=== PATIENT | female | born 1945 | race Caucasian/White ===

== ENCOUNTER → 2016-06-25 | Outpatient (CLI) | payer OTHER, BC ==
[~2016-06-25] MED LIST: ASPI325T39 PO; CYAN10005 PO; DONE10TA12 PO; FOLI1TAB7 PO; FURO-85 PO; LISI-729 PO; MAGN400T6 PO; PRLSR20 PO; PRVHFAIN INH; SERT50TA PO; SIMV40TA2 PO; TPRSR/100 PO; TRAM-10 PO
[2016-06-25 16:44] LABS: BLOOD UREA NITROGEN 9 mg/dl (7-18); BUN/CREATININE RATIO 10.2 (10-20); CALCIUM 8.7 mg/dl (8.5-10.1); CARBON DIOXIDE 31 mmol/L (21-32); CHLORIDE 101 mmol/L (98-107); CREATININE 0.87 mg/dl (0.60-1.20); GLUCOSE 85 mg/dl (70-99); POTASSIUM 3.9 mmol/L (3.5-5.1); SODIUM 140 mmol/L (136-145)
== END | disposition home or self-care (01) ==
LOC: C.LAB1850 15:12
PROVIDERS: ATTEND Internal Medicine Interventional Cardiology
DX: I42.9 Cardiomyopathy, unspecified (principal)

== ENCOUNTER → 2016-07-09 | Outpatient (CLI) | payer OTHER ==
--- NOTE | 2016-07-09 12:12 | DIAGNOSTIC IMAGING REPORT ---
CHEST 2 VIEWS ROUTINE CLINICAL HISTORY: Dyspnea on exertion COMPARISON STUDY: No previous studies for comparison. FINDINGS: The heart is mildly enlarged. Postmastectomy changes are present on the left. There is a small right pleural effusion. There is a 13 mm right upper lung zone opacity, possibly related to the right anterior second rib. Radiographic follow-up is recommended.[ There is no lobar consolidation IMPRESSION: 1. Nonspecific 13 mm right upper lung zone opacity, possibly related to the right anterior second rib 2. Small right pleural effusion Electronically signed by: Kwaku Singh M.D. 07/09/2016 12:11 PM Dictated Date/Time: 07/09/2016 12:09 PM
== END | disposition home or self-care (01) ==
LOC: C.RADBC 11:52
PROVIDERS: ATTEND Family Medicine
DX: R06.09 Other forms of dyspnea (principal); J90 Pleural effusion, not elsewhere classified

== ENCOUNTER → 2016-07-16 | Outpatient (CLI) | payer OTHER, BC ==
--- NOTE | 2016-07-16 11:37 | DIAGNOSTIC IMAGING REPORT ---
CHEST CT WITHOUT CONTRAST CT DOSE: 230.01 mGycm HISTORY: Pulmonary nodule R06.09 Dyspnea on exertion TECHNIQUE: Multiaxial CT images of the chest were performed without contrast. COMPARISON: Chest series dated 07/09/2016 FINDINGS: There is a right pleural effusion. There are multi focal nodular densities throughout the right hemithorax. There are minimal infiltrative changes peripheral aspect right midlung. There is mild peripheral pleural-based soft tissue thickening lateral costophrenic angle. Left lung also demonstrates several small nodules primarily in upper lobe distribution. These measure up to and include 12 mm. Within limitations of an unenhanced scan no significant hilar/mediastinal christine pathology is present. IMPRESSION: 1. Right pleural effusion. 2. Bilateral pulmonary nodular densities raising the possibility of metastatic disease. Electronically signed by: Maksim Causey M.D. 07/16/2016 11:35 AM Dictated Date/Time: 07/16/2016 11:26 AM
== END | disposition home or self-care (01) ==
LOC: C.CTS 11:11
PROVIDERS: ATTEND Family Medicine
DX: R06.09 Other forms of dyspnea (principal); R91.1 Solitary pulmonary nodule

== ENCOUNTER 2016-07-20 22:24 | Inpatient (IN) | payer OTHER, BC ==
[~2016-07-20] VITALS: Ht 154.9 cm; Wt 65.5 kg
[~2016-07-20 22:24] MED LIST changes: -FURO-85 PO; -LISI-729 PO; -PRVHFAIN INH; -TPRSR/100 PO; -TRAM-10 PO
--- NOTE | 2016-07-20 22:44 | EMERGENCY ROOM VISIT NOTE ---
History Report prepared by Priti: James Bansal Under the Supervision of: Dr. Haile Zhong D.O. First contact with patient: 22:33 Chief Complaint: SHORTNESS OF BREATH Stated Complaint: SOB History of Present Illness The patient is a 70 year old female who presents to the Emergency Room with complaints of worsening shortness of breath. As per family, the patient has been short of breath quite some time which became worse yesterday and today. The patient notes that her shortness of breath is worse with exertion but is not worse when she is laying flat. The patient was urged to come to the ED tonight by her family. The patient also notes some coughing without blood. She denies fevers, chest pain, vomiting, abdominal pain,or increased leg swelling. She has diarrhea at baseline secondary to a history of IBS. A family member also expresses concern that the patient's face is swollen. The patient was recently diagnosed with CHF with fluid in her right lung. She does not wear oxygen at home. She is a smoker. Source of History: patient, family Onset: yesterday Position: other (respiratory) Quality: other (short of breath) Timing: worsening Modifying Factors (Worsening): exertion Associated Symptoms: + cough, No abdominal pain, No chest pain, No fevers, No vomiting Review of Systems See HPI for pertinent positives and negatives. A total of ten systems were reviewed and were otherwise negative. Past Medical & Surgical Medical Problems: (1) Acute renal failure (2) Alcohol abuse (3) Atrial fibrillation Family History No pertinent family history Social History Smoking Status: Current Every Day Smoker Marital Status: Housing Status: lives with family Current/Historical Medications Scheduled Aspirin (Aspirin Ec), 325 MG PO DAILY Cyanocobalamin (Vitamin B-12), 1,000 MCG PO 3XWK Donepezil Hydrochloride (Aricept), 10 MG PO DAILY Folic Acid (Folvite), 1 MG PO DAILY Lisinopril (Zestril), 5 MG PO DAILY Magnesium Oxide (Mag-Ox), 400 MG PO DAILY Metoprolol Succinate (Metoprolol Succinate ER), 100 MG PO DAILY Omeprazole (Prilosec), 20 MG PO DAILY Sertraline (Zoloft), 50 MG PO DAILY Simvastatin (Zocor), 40 MG PO QPM Allergies Coded Allergies: No Known Allergies (Unverified , 01/21/16) Physical Exam Vital Signs Date Time Temp Pulse Resp B/P Pulse Ox O2 Delivery O2 Flow Rate FiO2 07/21/16 00:41 66 20 134/81 96 Room Air 07/20/16 23:59 62 18 126/77 94 Room Air 07/20/16 23:55 61 07/20/16 23:21 95 Room Air 07/20/16 23:18 95 Room Air 07/20/16 22:27 36.3 65 16 108/59 95 Room Air Physical Exam GENERAL: Awake, alert, well-appearing, in no distress HENT: Normocephalic, atraumatic. Oropharynx unremarkable. EYES: Normal conjunctiva. Sclera non-icteric. NECK: Supple. No nuchal rigidity. FROM. No JVD. RESPIRATORY: Crackles in the right lung, left lung is clear. CARDIAC: Regular rate, normal rhythm. Extremities warm and well perfused. Pulses equal. ABDOMEN: Soft, non-distended. No tenderness to palpation. No rebound or guarding. No masses. RECTAL: Deferred. MUSCULOSKELETAL: Chest examination reveals no tenderness. The back is symmetrical on inspection without obvious abnormality. There is no CVA tenderness to palpation. No joint edema. LOWER EXTREMITIES: Calves are equal size bilaterally and non-tender. No edema. No discoloration. NEURO: Normal sensorium. No sensory or motor deficits noted. SKIN: No rash or jaundice noted. Purplish hue to face. Medical Decision & Procedures ER Provider Diagnostic Interpretation: X ray results as stated below per my interpretation. CHEST ONE VIEW PORTABLE: Right lower lobe infiltrate. Compared to CT chest on 07/16/16 that showed a right pleural effusion. Laboratory Results 07/20/16 23:00 Red Blood Count 3.87, Mean Corpuscular Volume 87.1, Mean Corpuscular Hemoglobin 28.2, Mean Corpuscular Hemoglobin Concent 32.3, Mean Platelet Volume 11.0, Neutrophils (%) (Auto) 74.3, Lymphocytes (%) (Auto) 17.0, Monocytes (%) (Auto) 6.4, Eosinophils (%) (Auto) 1.4, Basophils (%) (Auto) 0.7, Neutrophils # (Auto) 3.14, Lymphocytes # (Auto) 0.72, Monocytes # (Auto) 0.27, Eosinophils # (Auto) 0.06, Basophils # (Auto) 0.03 07/20/16 23:00 07/20/16 23:52 Test 07/20/16 23:00 07/20/16 23:17 07/20/16 23:52 07/21/16 00:35 White Blood Count 4.23 K/uL (4.8-10.8) Red Blood Count 3.87 M/uL (4.2-5.4) Hemoglobin 10.9 g/dL (12.0-16.0) Hematocrit 33.7 % (37-47) Mean Corpuscular Volume 87.1 fL (80-100) Mean Corpuscular Hemoglobin 28.2 pg (25-34) Mean Corpuscular Hemoglobin Concent 32.3 g/dl (32-36) Platelet Count 134 K/uL (130-400) Mean Platelet Volume 11.0 fL (7.4-10.4) Neutrophils (%) (Auto) 74.3 % Lymphocytes (%) (Auto) 17.0 % Monocytes (%) (Auto) 6.4 % Eosinophils (%) (Auto) 1.4 % Basophils (%) (Auto) 0.7 % Neutrophils # (Auto) 3.14 K/uL (1.4-6.5) Lymphocytes # (Auto) 0.72 K/uL (1.2-3.4) Monocytes # (Auto) 0.27 K/uL (0.11-0.59) Eosinophils # (Auto) 0.06 K/uL (0-0.5) Basophils # (Auto) 0.03 K/uL (0-0.2) RDW Standard Deviation 47.2 fL (36.4-46.3) RDW Coefficient of Variation 14.8 % (11.5-14.5) Immature Granulocyte % (Auto) 0.2 % Immature Granulocyte # (Auto) 0.01 K/uL (0.00-0.02) Anion Gap 12.0 mmol/L (3-11) Est Creatinine Clear Calc Drug Dose 45.0 ml/min Estimated GFR () 65.2 Estimated GFR (Non- 56.2 BUN/Creatinine Ratio 15.2 (10-20) Calcium Level 8.2 mg/dl (8.5-10.1) Total Bilirubin 0.9 mg/dl (0.2-1) Alanine Aminotransferase (ALT/SGPT) 20 U/L (12-78) Alkaline Phosphatase 93 U/L (45-117) Total Protein 7.4 gm/dl (6.4-8.2) Albumin 3.5 gm/dl (3.4-5.0) Globulin 3.9 gm/dl (2.5-4.0) Albumin/Globulin Ratio 0.9 (0.9-2) GJ-Tvk-I-Type Natriuretic Peptide 37479 pg/ml (0-900) Aspartate Amino Transf (AST/SGOT) 28 U/L (15-37) Laboratory results reviewed by me Medications Administered Medications (Trade) Dose Ordered Sig/Lazaro Route Start Time Stop Time Status Last Admin Dose Admin Furosemide (Lasix Inj) 40 mg NOW STAT IV 07/20/16 23:42 07/20/16 23:44 DC 07/20/16 23:58 40 MG ECG Indication: SOB/dyspnea Rate (beats per minute): 62 Rhythm: sinus rhythm Findings: PVC (occasional), other (rightward axis, no obvious ST elevation, poor baseline) ED Course 2234: The patient was evaluated in room A3. A complete history and physical exam was performed. 2342: Lasix 40 mg IV. 5: Spoke with Dr. Jalloh [facility]. The patient will be evaluated. Medical Decision Etiologies such as infections, reactive airway disease, pneumonia, pneumothorax , COPD, CHF, cardiac ischemia, pulmonary embolism, musculoskeletal, gastrointestinal, as well as others were entertained. Patient's CT from 07/16/2016 was reviewed by me she clearly has either metastatic disease or primary disease and along with a right pleural effusion, elevated BNP was treated with Lasix. This case was discussed with the hospitalist for admission Consults Time Called: 34 Consulting Physician: Dr. Jalloh [facility]. Returned Call: [phone]: Spoke with Dr. Jalloh [facility]. The patient will be evaluated. Impression Primary Impression: Congestive heart failure Additional Impression: Pleural effusion Scribe Attestation The scribe's documentation has been prepared under my direction and personally reviewed by me in its entirety. I confirm that the note above accurately reflects all work, treatment, procedures, and medical decision making performed by me. Departure Information Dispostion Being Evaluated By Hospitalist Referrals John Dial D.O.Int.Med. (PCP) Patient Instructions My [facility] Problem Qualifiers Primary Impression: Congestive heart failure Congestive heart failure chronicity: acute
[2016-07-20] MEDS ORDERED: LISI-729 PO (22:45)
[2016-07-20] MEDS ORDERED: TPRSR/100 PO (22:45)
[2016-07-20 23:14] LABS: BASO % 0.7 %; BASO ABS # 0.03 K/uL (0-0.2); COMPLETE YES; EOS % 1.4 %; HEMATOCRIT 33.7 % (37-47); IG% 0.2 %; LYMPH ABS # 0.72 K/uL (1.2-3.4); MEAN CELL VOLUME 87.1 fL (80-100); MEAN CORPUSCULAR HEMOGLOBIN 28.2 pg (25-34); MEAN CORPUSCULAR HGB CONC 32.3 g/dl (32-36); MONO % 6.4 %; NEUT % 74.3 %; PLATELET COUNT 134 K/uL (130-400); RED BLOOD COUNT 3.87 M/uL (4.2-5.4); WHITE BLOOD COUNT 4.23 K/uL (4.8-10.8)
[2016-07-20 23:38] LABS: ALB/GLOB RATIO 0.9 (0.9-2); ALKALINE PHOSPHATASE 93 U/L (45-117); ALT/SGPT 20 U/L (12-78); BLOOD UREA NITROGEN 15 mg/dl (7-18); BUN/CREATININE RATIO 15.2 (10-20); CALCIUM 8.2 mg/dl (8.5-10.1); CARBON DIOXIDE 23 mmol/L (21-32); CHLORIDE 104 mmol/L (98-107); GLUCOSE 79 mg/dl (70-99); SODIUM 139 mmol/L (136-145)
[2016-07-20] MEDS ORDERED: FUROSEMIDE 40 MG/4 ML VIAL IV STA (23:42)
[2016-07-21 00:17] LABS: POTASSIUM 3.7 mmol/L (3.5-5.1)
[2016-07-21 00:57] LABS: URINE APPEARANCE CLEAR (CLEAR); URINE BILIRUBIN NEG (NEG); URINE COLOR YELLOW; URINE EPITHELIAL CELL AUTO >30 /lpf (0-5); URINE NITRITE NEG (NEG); URINE SPECIFIC GRAVITY 1.003 (1.000-1.030); UROBILINOGEN NEG (NEG)
[2016-07-21 01:08] LABS: MANUAL MICROSCOPIC REQUIRED? NO; REVIEW REQ? NO
[2016-07-21] MEDS ORDERED: ACETAMINOPHEN 325 MG TAB PO PRN (01:30)
[2016-07-21] MEDS ORDERED: LORAZEPAM 1 MG TAB PO PRN (01:30)
[2016-07-21] MEDS ORDERED: ONDANSETRON INJ 2 MG/ML 2 ML VIAL IV PRN (01:30)
[2016-07-21] MEDS ORDERED: GABAPENTIN 600 MG TAB PO SCH (01:30)
[2016-07-21] MEDS ORDERED: OPTIRAY 320 IV PRN (01:30)
[2016-07-21] MEDS ORDERED: POLYETHYLENE (MIRALAX) 17 GM PACK PO PRN (01:45)
--- NOTE | 2016-07-21 02:58 | History and Physical ---
History & Physical Date & Time of Service: Jul 21, 2016 at 02:45 Chief Complaint: SOB Primary Care Physician: John Dial D.O.Int.Med. History of Present Illness Source: patient, family This is a 70-year-old female smoker with significant daily alcohol consumption who presents with a 4 week history of shortness of breath, found to have a right -sided pleural effusion and CT scan 4 days ago. Prior to the this, a month ago , she had a simple viral URI, then her breathing never improved. She reports the shortness breath is worse with exertion, and was short of breath even walking from the parking lot to the ER door. She saw her PCP Dr. Dial, who ordered a CT scan, and she had an appointment with Dr. Jean Baptiste for Thursday. She came in today because her breathing had gotten significantly worse. She recently moved here to live from [place] to live with her daughter who is her primary molder machine tender. The daughter reports in the last 2 weeks the patient had signed up for the [facility] [place] [facility]. Her inspector subassembly is Dr. Marks. Her metoprolol doses have recently been changed. The patient drinks significant amounts of whiskey per day. In the morning she has a couple of coffee with 11 seconds trip of whiskey, and then has two further similar cups of coffee in the morning. She then mixes whiskey with water, and drinks throughout the day. She has been doing this for about 35 years. Her last drink was at 10 PM today, while in the parking lot of the ED. She is also smoked 1.5 packs per day since her childhood. We discussed if she has had any routine cancer screening. She has not had a mammogram for over 5 years. She has not had a colonoscopy for over 5 years. Her daughter reports that the patient's stools are significantly darker than they were before. She has not noticed any unintentional weight loss. Past Medical/Surgical History Medical Problems: (1) Alcohol abuse Status: Chronic (2) Atrial fibrillation Status: Chronic (3) CHF PSHx: None reported Family History No pertinent family history Social History Smoking Status: Current Every Day Smoker Marital Status: Housing status: lives with family Occupational Status: retired Allergies Coded Allergies: No Known Allergies (Unverified , 01/21/16) Home Medications Scheduled Aspirin (Aspirin Ec), 325 MG PO DAILY Cyanocobalamin (Vitamin B-12), 1,000 MCG PO 3XWK Donepezil Hydrochloride (Aricept), 10 MG PO DAILY Folic Acid (Folvite), 1 MG PO DAILY Lisinopril (Zestril), 5 MG PO DAILY Magnesium Oxide (Mag-Ox), 400 MG PO DAILY Metoprolol Succinate (Metoprolol Succinate ER), 100 MG PO DAILY Omeprazole (Prilosec), 20 MG PO DAILY Sertraline (Zoloft), 50 MG PO DAILY Simvastatin (Zocor), 40 MG PO QPM Review of Systems See HPI for pertinent positives & negatives. A total of 10 systems reviewed and were otherwise negative. Physical Exam Vital Signs Date Time Temp Pulse Resp B/P Pulse Ox O2 Delivery O2 Flow Rate FiO2 07/21/16 02:01 70 19 155/97 96 Room Air 07/21/16 00:41 66 20 134/81 96 Room Air 07/20/16 23:59 62 18 126/77 94 Room Air 07/20/16 23:55 61 07/20/16 23:21 95 Room Air 07/20/16 23:18 95 Room Air 07/20/16 22:27 36.3 65 16 108/59 95 Room Air General Appearance: WD/WN, no apparent distress Head: normocephalic, atraumatic Eyes: normal inspection, PERRL ENT: hearing grossly normal Neck: supple, no JVD Respiratory/Chest: + crackles (right base), + rales, + wheezing (diffuse inspiratory and expiratory) Cardiovascular: regular rate, rhythm, no murmur, normal peripheral pulses Abdomen/GI: normal bowel sounds, non tender, soft Back: no CVA tenderness, no muscle spasm Extremities/Musculoskelatal: normal inspection, no pedal edema Neurologic/Psych: fish frog or oyster farmer II-XII nml as tested, alert, normal mood/affect, oriented x 3 Skin: no rash Diagnostics Laboratory Results Results Past 24 Hours Test 07/20/16 23:00 07/20/16 23:17 07/20/16 23:52 07/21/16 00:35 Range/Units White Blood Count 4.23 4.8-10.8 K/uL Red Blood Count 3.87 4.2-5.4 M/uL Hemoglobin 10.9 12.0-16.0 g/dL Hematocrit 33.7 37-47 % Mean Corpuscular Volume 87.1 80-100 fL Mean Corpuscular Hemoglobin 28.2 25-34 pg Mean Corpuscular Hemoglobin Concent 32.3 32-36 g/dl Platelet Count 134 130-400 K/uL Mean Platelet Volume 11.0 7.4-10.4 fL Neutrophils (%) (Auto) 74.3 % Lymphocytes (%) (Auto) 17.0 % Monocytes (%) (Auto) 6.4 % Eosinophils (%) (Auto) 1.4 % Basophils (%) (Auto) 0.7 % Neutrophils # (Auto) 3.14 1.4-6.5 K/uL Lymphocytes # (Auto) 0.72 1.2-3.4 K/uL Monocytes # (Auto) 0.27 0.11-0.59 K/uL Eosinophils # (Auto) 0.06 0-0.5 K/uL Basophils # (Auto) 0.03 0-0.2 K/uL RDW Standard Deviation 47.2 36.4-46.3 fL RDW Coefficient of Variation 14.8 11.5-14.5 % Immature Granulocyte % (Auto) 0.2 % Immature Granulocyte # (Auto) 0.01 0.00-0.02 K/uL Sodium Level 139 136-145 mmol/L Potassium Level 3.7 3.5-5.1 mmol/L Chloride Level 104 98-107 mmol/L Carbon Dioxide Level 23 21-32 mmol/L Anion Gap 12.0 3-11 mmol/L Blood Urea Nitrogen 15 7-18 mg/dl Creatinine 1.00 0.60-1.20 mg/dl Est Creatinine Clear Calc Drug Dose 45.0 ml/min Estimated GFR () 65.2 Estimated GFR (Non- 56.2 BUN/Creatinine Ratio 15.2 10-20 Random Glucose 79 70-99 mg/dl Calcium Level 8.2 8.5-10.1 mg/dl Total Bilirubin 0.9 0.2-1 mg/dl Aspartate Amino Transf (AST/SGOT) 28 15-37 U/L Alanine Aminotransferase (ALT/SGPT) 20 12-78 U/L Alkaline Phosphatase 93 45-117 U/L Total Protein 7.4 6.4-8.2 gm/dl Albumin 3.5 3.4-5.0 gm/dl Globulin 3.9 2.5-4.0 gm/dl Albumin/Globulin Ratio 0.9 0.9-2 HP-Yqc-P-Type Natriuretic Peptide 68687 0-900 pg/ml Urine Color YELLOW Urine Appearance CLEAR CLEAR Urine pH 6.0 4.5-7.5 Urine Specific [place] 1.003 1.000-1.030 Urine Protein NEG NEG Urine Glucose (UA) NEG NEG Urine Ketones NEG NEG Urine Occult Blood TRACE NEG Urine Nitrite NEG NEG Urine Bilirubin NEG NEG Urine Urobilinogen NEG NEG Urine Leukocyte Esterase TRACE NEG Urine WBC (Auto) 1-5 0-5 /hpf Urine RBC (Auto) 5-10 0-4 /hpf Urine Hyaline Casts (Auto) 0 0-5 /lpf Urine Epithelial Cells (Auto) >30 0-5 /lpf Urine Bacteria (Auto) NEG NEG Test 07/21/16 01:24 Range/Units Microbiology Results 07/20/16 Blood Culture, Received Pending 07/20/16 Blood Culture, Received Pending Diagnostic Radiology CXR (Formal report pending): Right basal infiltrate Normal EKG Impression Assessment and Plan 70-year-old female with CHF, as well as significant smoking and alcohol consumption history who presents with shortness of breath, found to have a right sided pleural effusion. Differential includes malignancy, pleural effusion, pneumonia. Right-sided pleural effusion - We will consult Dr Jean Baptiste for evaluation. - Hold heparin until after likely chest thoracentesis Potential malignancy - CT Abdomen/Pelvis with contrast to evaluate source Alcohol abuse - Gabapentin protocol - Ativan 1mg q2h PRN if Gabapentin unsuccessful - Last drink 10pm 07/20/16 - Continue B12, Folate, Thiamine replacement Smoking cessation - Offered Nicotine patch, pt declined as she wanted to smoke at that moment CHF - Continue home medications (aspirin, statin, lisinopril, toprol XL) CODE STATUS: FULL DISPO: Med/Surg VTE: SCDs VTE Prophylaxis VTE Risk Assessment Done? Y/N: Yes Risk Level: Moderate Resident Tracking Resident Involvement: Resident Care Provided Care Provided: [facility] Assessment and Plan Attending Addendum: I have physically seen and examined this patient, have directed their medical care, have supervised the medical residents activities, and agree with the H&P as noted above, with the following changes: NONE The patient is awake, well-developed and adequately nourished, alert and oriented 3, thuy complexion, normocephalic and atraumatic, sitting upright in bed and in no acute distress. HEENT--PERRL, EOMI, mucous membranes and oropharynx dry. Neck--supple, no JVD or bruits, thyroid normal, trachea midline, no adenopathy. Heart--normal S1 and S2, no extra beats, no murmurs, rubs or gallops. Lungs--decreased breath sounds right base, no respiratory distress, no accessory muscle use. Abdomen--normal bowel sounds and soft, nontender and nondistended, no hernias or masses, no organomegaly. Extremities--no cyanosis, clubbing or edema. There are good distal pulses b/l. Dermatologic--normal skin turgor, normal color, warm and dry, no abnormal lymph nodes, no rash, other than as noted above. Neurologic--cranial nerves II through XII grossly intact, motor and sensory examination normal. Rheumatologic--normal range of motion, nontender, muscles and joints for age. Psychiatric--normal affect. Shortness of Breath--likely multifactorial, including right pleural effusion, COPD, and deconditioning. Her CT of the chest performed 4 days ago was suggestive of metastatic disease. To further investigate, order a CT of the abdomen and pelvis, and will follow up on last colonoscopy and mammogram. We' ll consult Dr. Jean Baptiste, whom her outpatient PCP had made an appointment for in 2 days, for further assessment of pleural effusion. Hypertension--continue usual medicines metoprolol, lisinopril and aspirin. GERD-change omeprazole to pantoprazole for formulary. Hypercholesterolemia--continue simvastatin. Dementia/depression/anxiety--continue donepezil and sertraline. Alcohol use disorder--we'll place on gabapentin protocol, and it is in the hospital long enough will need to have benzodiazepines, clonidine and others as well. Ordering a CT of the abdomen and pelvis to assess for possible liver cirrhosis or other disease. Tobacco use disorder--we will offer nicotine patch, and counseling. Presumptive COPD--along with above workup will determine need for inhalers, etc.
[2016-07-21] MEDS ORDERED: GABAPENTIN 1200MG LOADING DOSE PO ONE (04:00)
[2016-07-21 04:10] VITALS: BP 129/85; PULSE 68; TEMP 36.3; O2SAT 94
[2016-07-21] MEDS: THIAMINE HCL 100 MG TAB PO SCH (04:16)
[2016-07-21 04:21] VITALS: Ht 154.9 cm; Wt 65.5 kg
--- NOTE | 2016-07-21 06:24 | DIAGNOSTIC IMAGING REPORT ---
CHEST ONE VIEW PORTABLE CLINICAL HISTORY: sob dyspnea COMPARISON STUDY: 07/09/2006 FINDINGS: Progressive infiltrate right lung base. Unchanging nodular density right upper lung. Left lung remains clear. Left axillary resection changes are again noted. IMPRESSION: Progressive infiltrate right base. Unchanging nodularity right upper lung Electronically signed by: Maksim Causey M.D. 07/21/2016 6:22 AM Dictated Date/Time: 07/21/2016 6:22 AM
--- NOTE | 2016-07-21 07:15 | DIAGNOSTIC IMAGING REPORT ---
CT SCAN OF THE ABDOMEN AND PELVIS WITH IV CONTRAST CLINICAL HISTORY: Alcoholism. Pulmonary nodules. COMPARISON STUDY: Renal ultrasound dated 01/22/2016. Chest CT dated 07/16/2016. TECHNIQUE: Following the IV administration of 92 cc of Optiray 320, CT scan of the abdomen and pelvis is performed from the lung bases to the proximal femora. Images are reviewed in the axial, sagittal, and coronal planes. IV contrast was administered without complication. Automated dose control exposure was utilized. The examination is degraded by streak artifact from the patient's arms which could not be elevated above the abdomen. CT DOSE: 351.92 mGy.cm FINDINGS: Lung bases: The heart is enlarged and without pericardial effusion. There are coronary artery calcifications. There is a moderate right pleural effusion with associated atelectasis. The left lung base appears clear. Liver: The contrast-enhanced liver is cirrhotic in morphology and demonstrates heterogeneously diminished attenuation consistent with steatosis. There is nodularity of the surface contour. There is no intrahepatic biliary ductal dilatation. The hepatic veins and portal veins are patent. Gallbladder: Unremarkable. Spleen: Normal in size and attenuation. Pancreas: Moderately atrophic and grossly unremarkable. Adrenal glands: Unremarkable. Kidneys: The contrast enhanced kidneys are atrophic and without hydronephrosis. The right kidney is located in the pelvis. The kidneys enhance symmetrically. Abdominal vasculature: The abdominal aorta is normal in course and caliber noting moderate to advanced atherosclerotic calcification. Bowel: The small bowel and colon are normal in course and caliber. There is mild to moderate diverticulosis of left colon without CT evidence of acute diverticulitis. Colonic fecal retention is observed. The appendix is not visualized. Peritoneum: There is no intraperitoneal free air or abdominal ascites. Lymphadenopathy: None. Pelvic viscera: The bladder is normal as visualized. The uterus is surgically absent. No adnexal lesion is seen. Pelvic floor prolapse is suggested. Skeletal structures: The skeletal structures are osteopenic. There is moderate lumbosacral spondylosis scoliosis. No lytic or blastic lesions are seen. Soft tissues: There is body wall edema. IMPRESSION: 1. The liver demonstrates changes of cirrhosis and steatosis. 2. No acute infectious or inflammatory findings are identified in the abdomen or pelvis. 3. Moderate right pleural effusion with associated atelectasis. 4. There is diverticulosis of the left colon without CT evidence of acute diverticulitis. 5. Body wall edema is noted. 6. Cardiomegaly. 7. Additional changes as above. Electronically signed by: Ryne Day M.D. 07/21/2016 7:13 AM Dictated Date/Time: 07/21/2016 7:07 AM
[2016-07-21 07:16] VITALS: BP 147/86; PULSE 65; TEMP 36.6; O2SAT 96
--- NOTE | 2016-07-21 09:26 | OPERATIVE REPORT ---
DATE OF OPERATION: 07/21/2016 PREOPERATIVE DIAGNOSIS: Right pleural effusion. POSTOPERATIVE DIAGNOSIS: Same. PROCEDURE: Right thoracentesis. SURGEON: Dr. Jean Baptiste. TEST DRIVER: NANCY Hein. ANESTHESIA: Local. SPECIFICS OF PROCEDURE: The patient in a seated position, an ultrasound was used to localize a window for drainage of pleural effusion. This was marked. She was then sterilely prepped and draped and the site was anesthetized with 25-gauge needle, 1% Xylocaine. A large bore needle was used to anesthetize the deeper subcutaneous tissues and pleura, and then we got free flowing fluid back. This was a rust-colored fluid and we drained about 650 mL. She had some reexpansion coughing with pain. I think we drained her completely dry. The catheter was removed without difficulty. Antimicrobial dressing was placed. Chest x-ray is pending. We sent the fluid for the usual studies. It is important to note that the patient has a very long history of cigarette smoking and is actively smoking now. The pulmonary nodules in the right lung ma are ominous and I believe may represent a malignancy. We will get the results of this and then determine whether we need to do more invasive diagnostic procedures. I attest to the content of the Intraoperative Record and any orders documented therein. Any exceptio ns are noted below.
[2016-07-21] MEDS: SERTRALINE HCL 50 MG TAB PO SCH (09:31)
[2016-07-21] MEDS: MAGNESIUM OXIDE 400 MG TAB PO SCH (09:31)
[2016-07-21] MEDS: ASPIRIN 325 MG ECTAB PO SCH (09:32)
[2016-07-21] MEDS: DONEPEZIL HCL 10 MG TAB PO SCH (09:32)
[2016-07-21] MEDS: METOPROLOL SUCC 50MG EXT REL TAB PO SCH (09:33)
[2016-07-21] MEDS: PANTOprazole SOD 40 MG TAB PO SCH (09:33)
[2016-07-21] MEDS: CYANOCOBALAMIN 500 MCG TAB (VIT B-12) PO SCH (09:34)
[2016-07-21] MEDS: LISINOPRIL 5 MG TAB PO SCH (09:34)
[2016-07-21] MEDS: GABAPENTIN 600MG Q6H DOSE PO SCH ×2 (09:35→17:46)
--- NOTE | 2016-07-21 09:35 | SURGICAL CONSULTATION ---
DATE OF CONSULTATION: 07/21/2016 REASON FOR CONSULTATION: Pulmonary nodules and pleural effusion. HISTORY OF PRESENT ILLNESS: Sarah Arita is a 70-year-old who has been smoking for well over 50 years, who had her last cigarette at 10:00 last night. She was actually scheduled to see me in the office tomorrow as she was found to have pulmonary nodules and a right pleural effusion. She also drinks alcohol daily. She has a cardiomyopathy and is followed by Dr. Maciej Marks. I have been asked to comment on diagnostic workup as well as for her symptomatic shortness of breath. She states that she has worsened she was 3 months ago and is definitely has had progression of her symptoms. She states she denies weight loss. PAST MEDICAL HISTORY: 1. Cigarette smoking (at least 75 pack years). 2. Chronic atrial fibrillation. 3. Episodes of congestive heart failure. 4. Chronic alcohol abuse. 5. Questionable dementia. 6. Hypercholesterolemia. PAST SURGICAL HISTORY: 1, para 1. MEDICATIONS: 1. Aricept. 2. Aspirin. 3. Vitamin B12. 4. Folic acid. 5. Zestril. 6. Metoprolol. 7. Magnesium oxide. 8. Zoloft. 9. Prilosec. 10. Zocor. SOCIAL HISTORY: The patient currently lives with her [id number]. She smokes 1-1/2 pack of cigarettes a day and drinks whiskey daily. 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 FAMILY MEDICAL HISTORY: The patient's mother at age 80 from unknown reasons. Father at 85 and "was a smoker." She has a son who is alive and well and 1 grandchild, who is alive and well. The patient has 2 older sisters, who are living, but with multiple problems and one is wheelchair bound. She has 2 of her brothers have , one in his late 60s and one in his 70s and she is not sure of the etiologies. ALLERGIES: No known drug allergies. REVIEW OF SYSTEMS: The patient states her weight has been stable. She has been eating well. She states she can get up a flight of steps "if I stop in the midpoint and rest." She denies night sweats. She does not have a productive cough, although occasionally she will cough. She does get short of breath when she pushes herself. She denies palpitations. She denies any problems with voiding, although she states that she knows her stools have been darker. She denies any skin breakdown. She has had no visual or auditory symptoms. She denies peripheral edema. She has no claudication type symptoms. She denies chest pain. PHYSICAL EXAMINATION: GENERAL: This is a 5 feet 1 inch, 145 pound white female who is awake and alert. HEENT: Her extraocular movements are intact. Pupils are equal, round and reactive. Sclerae are bit pale, but anicteric. The patient has dentures, upper and lower denture plates. I detect no obvious oral mucosal lesions. Her tongue is midline. NECK: Supple. I detect no supraclavicular or cervical lymphadenopathy, neck vein distention or carotid bruits. LUNGS: She has end-expiratory wheezing with coarse rhonchi and decreased breath sounds in her right base. HEART: She has had a regular rate and rhythm of her heart without a significant rub. The patient apparently has a history of atrial fibrillation, but appears to be in a sinus rhythm today. ABDOMEN: Soft. She has some mild edema of her subcutaneous tissues, particularly on the right. EXTREMITIES: She has good femoral pulses. I can palpate right posterior tibialis and the left dorsalis pedis pulse. She has no joint effusions. She has really no edema of her lower legs. She has no asterixis. She has no obvious focal deficits. DATA REVIEW: Her CT scan from a week ago as well as a CT scan of her abdomen last night. She does have fluid in her right chest and has multiple nodules, which appear ominous to me. Her white count is 4230 and hemoglobin of 10.9. Her BNP was 10,460. Her heart is simply huge on her CT scan. ASSESSMENT AND PLAN: Right pleural effusion with multiple nodules, which appear to be malignant. I had a long talk with the patient today. We are going to proceed with a thoracentesis for both diagnosis and for her symptoms.
--- NOTE | 2016-07-21 09:37 | DIAGNOSTIC IMAGING REPORT ---
CHEST ONE VIEW PORTABLE HISTORY: s/p thoracentesis COMPARISON: Chest 07/20/2016. FINDINGS: Small right pleural effusion persist. The heart remains borderline enlarged. No pneumothorax. Linear scarlike density within the right midlung zone. Improved aeration within the right lung base. Surgical clips within the left chest wall. Right upper lobe nodules are again noted. IMPRESSION: 1. No pneumothorax. 2. Improved aeration within the right lung base. 3. Right upper lobe nodules again noted. Electronically signed by: Vitor Portillo M.D. 07/21/2016 9:35 AM Dictated Date/Time: 07/21/2016 9:32 AM
[2016-07-21 10:23] LABS: PLEURAL FLUID TOTAL PROTEIN 2.1 g/dl
[2016-07-21 10:41] LABS: PLEURAL FLUID APPEARANCE HAZY; PLEURAL FLUID COLOR STRAW; PLEURAL FLUID SOURCE RIGHT LUNG; PLEURAL FLUID WBC (A) 781 /uL
--- NOTE | 2016-07-21 11:17 | Family Medicine Progress Note ---
Progress Note Date of Service Jul 21, 2016. Subjective Pt evaluation today including: conversation w/ patient, conversation w/ family , physical exam, chart review, lab review, review of studies, conversation w/ franchise business consultant, review of inpatient medication list Pain: denies pain PO Intake: adequate Patient s/p Thoracentesis reports feelin better in general. SOB significantly improved. denies CP, palpitation, cough, fevers/chills, N/V Constitutional: No chills, No fatigue, No fever, No sweats Respiratory: No cough, No dyspnea at rest, No shortness of breath Cardiovascular: No chest pain, No edema, No palpitations Abdomen: No constipation, No diarrhea, No nausea, No pain, No vomiting Female : No dysuria, No hematuria, No urinary frequency Neurologic: No numbness/tingling, No weakness Heme: No abnormal bleeding/bruising Medications Current Inpatient Medications Medications (Trade) Dose Ordered Sig/Lazaro Route Start Time Stop Time Status Last Admin Dose Admin Ioversol (Optiray 320) 100 ml UD PRN IV 07/21/16 01:30 07/25/16 01:29 Acetaminophen (Tylenol Tab) 650 mg Q4H PRN PO 07/21/16 01:30 08/20/16 01:29 Polyethylene (Miralax Powder Packet) 17 gm DAILY PRN PO 07/21/16 01:45 08/20/16 01:44 Ondansetron HCl (Zofran Inj) 4 mg Q6H PRN IV 07/21/16 01:30 08/20/16 01:29 Zolpidem Tartrate (Ambien Tab) 5 mg HSZ PRN PO 07/21/16 01:30 08/20/16 01:29 Thiamine HCl (Vitamin B-1 Tab) 100 mg DAILY PO 07/21/16 04:00 08/20/16 03:59 07/21/16 04:16 100 MG Lorazepam (Ativan Tab) 1 mg Q2H PRN PO 07/21/16 01:30 08/20/16 01:29 Aspirin (Ecotrin Tab) 325 mg DAILY PO 07/21/16 08:00 08/20/16 08:59 07/21/16 09:32 325 MG Cyanocobalamin (Vitamin B-12 Tab) 1,000 mcg MoWeFr@0800 PO 07/21/16 08:00 08/20/16 07:59 07/21/16 09:34 1,000 MCG Donepezil HCl (Aricept Tab) 10 mg DAILY PO 07/21/16 08:00 08/20/16 08:59 07/21/16 09:32 10 MG Lisinopril (Zestril Tab) 5 mg DAILY PO 07/21/16 08:00 08/20/16 08:59 07/21/16 09:34 5 MG Magnesium Oxide (Mag-Ox Tab) 400 mg DAILY PO 07/21/16 08:00 08/20/16 08:59 07/21/16 09:31 400 MG Sertraline HCl (Zoloft Tab) 50 mg DAILY PO 07/21/16 08:00 08/20/16 08:59 07/21/16 09:31 50 MG Simvastatin (Zocor Tab) 40 mg QPM PO 07/21/16 21:00 08/20/16 20:59 Metoprolol Succinate (Toprol Xl Tab) 100 mg DAILY PO 07/21/16 08:00 08/20/16 08:59 07/21/16 09:33 100 MG Pantoprazole Sodium (Protonix Tab) 40 mg QAM PO 07/21/16 08:00 08/20/16 07:59 07/21/16 09:33 40 MG Folic Acid (Folvite Tab) 1 mg QAM PO 07/21/16 08:00 08/20/16 08:59 07/21/16 09:33 1 MG Gabapentin (Neurontin Tab) 600 mg Q6H PO 07/21/16 10:00 07/21/16 16:01 07/21/16 09:35 600 MG Gabapentin (Neurontin Tab) 600 mg Q8H PO 07/22/16 06:00 07/22/16 22:01 Gabapentin (Neurontin Tab) 600 mg Q12H PO 07/23/16 08:00 07/23/16 20:01 Gabapentin (Neurontin Tab) 600 mg Q24H PO 07/24/16 09:00 07/24/16 09:01 Objective Vital Signs Date Time Temp Pulse Resp B/P Pulse Ox O2 Delivery O2 Flow Rate FiO2 07/21/16 15:26 36.5 63 18 93/58 92 Room Air 07/21/16 08:00 Room Air 07/21/16 07:16 36.6 65 18 147/86 96 Room Air 07/21/16 04:21 Room Air 07/21/16 04:10 36.3 68 20 129/85 94 Room Air 07/21/16 03:02 82 20 95 07/21/16 02:01 70 19 155/97 96 Room Air 07/21/16 00:41 66 20 134/81 96 Room Air 07/20/16 23:59 62 18 126/77 94 Room Air 07/20/16 23:55 61 07/20/16 23:21 95 Room Air 07/20/16 23:18 95 Room Air 07/20/16 22:27 36.3 65 16 108/59 95 Room Air Physical Exam General Appearance: WD/WN, no apparent distress Eyes: normal inspection, PERRL, EOMI Neck: supple, no adenopathy, no carotid bruits, trachea midline Respiratory/Chest: lungs clear, normal breath sounds, no respiratory distress Cardiovascular: regular rate, rhythm, no edema, no murmur Abdomen: normal bowel sounds, non tender, soft, no organomegaly Extremities: normal range of motion, non-tender, normal inspection Neurologic/Psychiatric: alert, normal mood/affect, oriented x 3 Skin: normal color, warm/dry, no rash Laboratory Results Results Past 24 Hours Test 07/20/16 23:00 07/20/16 23:17 07/20/16 23:52 07/21/16 00:35 Range/Units White Blood Count 4.23 4.8-10.8 K/uL Red Blood Count 3.87 4.2-5.4 M/uL Hemoglobin 10.9 12.0-16.0 g/dL Hematocrit 33.7 37-47 % Mean Corpuscular Volume 87.1 80-100 fL Mean Corpuscular Hemoglobin 28.2 25-34 pg Mean Corpuscular Hemoglobin Concent 32.3 32-36 g/dl Platelet Count 134 130-400 K/uL Mean Platelet Volume 11.0 7.4-10.4 fL Neutrophils (%) (Auto) 74.3 % Lymphocytes (%) (Auto) 17.0 % Monocytes (%) (Auto) 6.4 % Eosinophils (%) (Auto) 1.4 % Basophils (%) (Auto) 0.7 % Neutrophils # (Auto) 3.14 1.4-6.5 K/uL Lymphocytes # (Auto) 0.72 1.2-3.4 K/uL Monocytes # (Auto) 0.27 0.11-0.59 K/uL Eosinophils # (Auto) 0.06 0-0.5 K/uL Basophils # (Auto) 0.03 0-0.2 K/uL RDW Standard Deviation 47.2 36.4-46.3 fL RDW Coefficient of Variation 14.8 11.5-14.5 % Immature Granulocyte % (Auto) 0.2 % Immature Granulocyte # (Auto) 0.01 0.00-0.02 K/uL Sodium Level 139 136-145 mmol/L Potassium Level 3.7 3.5-5.1 mmol/L Chloride Level 104 98-107 mmol/L Carbon Dioxide Level 23 21-32 mmol/L Anion Gap 12.0 3-11 mmol/L Blood Urea Nitrogen 15 7-18 mg/dl Creatinine 1.00 0.60-1.20 mg/dl Est Creatinine Clear Calc Drug Dose 45.0 ml/min Estimated GFR () 65.2 Estimated GFR (Non- 56.2 BUN/Creatinine Ratio 15.2 10-20 Random Glucose 79 70-99 mg/dl Calcium Level 8.2 8.5-10.1 mg/dl Total Bilirubin 0.9 0.2-1 mg/dl Aspartate Amino Transf (AST/SGOT) 28 15-37 U/L Alanine Aminotransferase (ALT/SGPT) 20 12-78 U/L Alkaline Phosphatase 93 45-117 U/L Total Protein 7.4 6.4-8.2 gm/dl Albumin 3.5 3.4-5.0 gm/dl Globulin 3.9 2.5-4.0 gm/dl Albumin/Globulin Ratio 0.9 0.9-2 YL-Idc-Q-Type Natriuretic Peptide 33962 0-900 pg/ml Urine Color YELLOW Urine Appearance CLEAR CLEAR Urine pH 6.0 4.5-7.5 Urine Specific [place] 1.003 1.000-1.030 Urine Protein NEG NEG Urine Glucose (UA) NEG NEG Urine Ketones NEG NEG Urine Occult Blood TRACE NEG Urine Nitrite NEG NEG Urine Bilirubin NEG NEG Urine Urobilinogen NEG NEG Urine Leukocyte Esterase TRACE NEG Urine WBC (Auto) 1-5 0-5 /hpf Urine RBC (Auto) 5-10 0-4 /hpf Urine Hyaline Casts (Auto) 0 0-5 /lpf Urine Epithelial Cells (Auto) >30 0-5 /lpf Urine Bacteria (Auto) NEG NEG Test 07/21/16 06:07 07/21/16 08:35 07/21/16 09:09 Range/Units Vitamin B12 Level 1092 211-911 pg/mL Folate > 24.00 >5.38 ng/mL Pleural Fluid Source RIGHT LUNG Pleural Fluid Color STRAW Pleural Fluid Appearance HAZY Pleural Fluid WBC 781 /uL Pleural Fluid RBC < 3000 /uL Pleural Fluid pH 7.40 7.3-7.4 Pleural Fluid Polynuclear WBCs % 11.5 % Pleural Fluid Mononuclear WBCs % 88.5 % Pleural Fluid Total Protein 2.1 g/dl Pleural Fluid LDH 71 IU Pleural Fluid Glucose 83 mg/dl Pleural Fluid Amylase 40 U/L Lactate Dehydrogenase 165 84-246 U/L Microbiology Results 07/20/16 Blood Culture, Received Pending 07/20/16 Blood Culture, Received Pending 07/21/16 Fungal Smear, Received Pending 07/21/16 Fungal Culture, Received Pending 07/21/16 Acid Fast Stain, Received Pending 07/21/16 Mycobacterial Culture, Received Pending 07/21/16 Gram Stain - Final, Resulted 07/21/16 Bacterial Culture, Resulted Pending Assessment and Plan 70 yo F w. hx of Paroxysmal Atrial Fibrillation, Non-ischemic CM, Hx of Breast Cancer s/p lumpectomy p/w SOB, admitted with Right Pleural Effusion, s/p Pleurocentesis SOB -likely due to Right Pleural effusion, suspicious for malignancy based on CT findings - improved s/p pleurocentesis -07/16/16 CT:1. Right pleural effusion. Bilateral pulmonary nodular densities raising the possibility of metastatic disease. - Discussed case with Dr. Jean Baptiste (CT Surgery) - Plan will be to Follow up Pleurocentesis pathology report and evaluate with Bronchoscopy Paroxysmal Atrial Fibrillation - rate controlled -Continue to monitor Ischemic CM -stable -Continue Metoprolol Alcohol abuse - Gabapentin protocol - Ativan 1mg q2h PRN if Gabapentin unsuccessful - Last drink 10pm 07/20/16 - Continue B12, Folate, Thiamine replacement --CT Abdomen: findings suggestive for cirrhosis, steatosis. Liver enzymes wnl --Order INR GERD -Continue Protonix Hyperlipidemia -Continue Zocor Continued [facility] stay due to: other (pending pathology/ procedure) Discharge planning: home Resident Tracking Resident Involvement: Resident Care Provided Care Provided: Adult Hospital Medicine Reviewed: Pt Seen/Exam by Me History See my note for details.
[2016-07-21 12:12] LABS: PLEURAL FLUID MONONUC RELAT 88.5 %; PLEURAL FLUID POLYNUC 11.5 %
[2016-07-21 15:26] VITALS: BP 93/58; PULSE 63; TEMP 36.5; O2SAT 92
--- NOTE | 2016-07-21 15:52 | Progress Note ---
Progress Note Date of Service Jul 21, 2016. Progress Note Pt seen and examined by me. No further SOB s/p thoracentesis. No chest pain. Tolerating PO. Pt informs me that she has much decreased her whiskey intake since moving to [place] "it helps not being alone" and that she plans to further decrease her use. Denies hx of major withdrawal issues, seizures. Does not feel shaky, agitated now. Agree with above HPI and ROS as noted. Exam: Gen: NAD,WDWN Hrt: RRR , neg edema Lungs: CTA b/l, neg resp distress Abd: + BS, soft, nonTTP LE: neg for edema, nonTTP Neuro: A&O x3, pleasant Skin: neg for rash, warm/dry, bandaging in place at thoracentesis site that is clean and dry Plan: Agree with plan as outlined by admitting physician s/p thoracentesis Bronch later this week Concern for malignancy Ongoing EtOH protocol
[2016-07-21 16:00] VITALS: O2SAT 92
--- NOTE | 2016-07-21 18:35 | ECHOCARDIOGRAM REPORT ---
*NOTICE TO RECEIVING [employer] This information is strictly Confidential and protected under [place] law. [place] law prohibits you from making any further disclosure of this information unless further disclosure is expressly permitted by the written consent of the person to whom it pertains or is authorized by law. A general authorization for the release of medical or other information is not sufficient for this purpose. Hospital accepts no responsibility if the information is made available to any other person, INCLUDING THE PATIENT. Interpretation Summary * Name: SUBHA TAVAREZ Study Date: 07/21/2016 06:47 AM BP: 147/86 mmHg * Patient Location: .[id number]\E416\S\1 HR: 65 * : 1945 (M/d/yyyy) Gender: Female Height: 61 in * Age: 70 yrs Ethnicity: CA Weight: 151 lb * Ordering Physician: Pushpa Marquez * Referring Physician: Self, Referred * Performed By: Antonina Ruiz RCS * * Reason For Study: CHF * BSA: 1.7 m2 * -- Conclusions -- * 1. Normal LV size. Normal LV wall thickness. * 2. Mild to moderate global LV dysfunction. LVEF 40-45%. Abnormal septal motion. * 3. Normal RV size. Mild RV dsyfunction. * 4. Mild to moderate mitral regurgitation. * 5. Grade II diastolic dysfunction * 6. Mild pulmonary hypertension. Est PASP 40-45 mmHg. Normal RA pressure. * 7. No prior studies for comparison. Procedure Details * A complete two-dimensional transthoracic echocardiogram was performed (2D, M-mode, Doppler and color flow Doppler). Left Ventricle * The left ventricle is grossly normal size. * There is normal left ventricular wall thickness. * Ejection Fraction = 40-45%. * Paradoxical septal motion is consistent with right ventricular volume overload. Right Ventricle * The right ventricle is grossly normal size. * The right ventricular systolic function is mildly reduced. Atria * The left atrium is moderately dilated. * The right atrium is moderately dilated. * No ASD detected; PFO is not assessed. Mitral Valve * There is mild mitral annular calcification. * The mitral valve leaflets appear thickened, but open well. * Mitral stenosis is absent. * There is mild to moderate mitral regurgitation. Tricuspid Valve * The tricuspid valve is not well visualized, but is grossly normal. * There is no tricuspid stenosis. * There is mild to moderate tricuspid regurgitation. Aortic Valve * The aortic valve opens well. * The aortic valve is trileaflet. * No hemodynamically significant valvular aortic stenosis. * Trace aortic regurgitation. Pulmonic Valve * The pulmonary valve is inadequately visualized, but the Doppler data is adequate for interpretation. * Pulmonic stenosis is absent. * Trace pulmonic valvular regurgitation. Great Vessels * The aortic root and proximal ascending aorta are normal sized. Pericardium/Pleural * There is no pericardial effusion. Great Vessels * Normal inferior vena cava size and collapsability with sniff indicates a normal right atrial pressure of 3 mmHg * Mild PH. Estimated PASP 40-45 Left Ventricular Diastolic Function * Diastolic dysfunction, Grade II (pseudonormalization pattern). MMode 2D Measurements and Calculations IVSd 1.0 cm IVSs 1.2 cm LVIDd 5.2 cm LVIDs 3.6 cm LVPWd 1.0 cm LVPWs 1.2 cm IVS/LVPW 1.0 FS 30.1 % EDV(Teich) 126.7 ml ESV(Teich) 54.4 ml EF(Teich) 57.1 % EDV(cubed) 136.7 ml ESV(cubed) 46.6 ml EF(cubed) 65.9 % % IVS thick 15.7 % % LVPW thick 16.6 % LV mass(C)d 196.6 grams LV mass(C)dI 117.3 grams/m\S\2 LV mass(C)s 139.0 grams LV mass(C)sI 82.9 grams/m\S\2 CO(Teich) 4.9 l/min CI(Teich) 2.9 l/min/m\S\2 SV(Teich) 72.3 ml SI(Teich) 43.1 ml/m\S\2 CO(cubed) 6.1 l/min CI(cubed) 3.7 l/min/m\S\2 SV(cubed) 90.1 ml SI(cubed) 53.7 ml/m\S\2 Ao root diam 3.1 cm Ao root area 7.4 cm\S\2 ACS 1.5 cm LA dimension 3.7 cm LA/Ao 1.2 LVAd ap4 27.3 cm\S\2 LVLd ap4 7.5 cm EDV(MOD-sp4) 82.0 ml LVAs ap4 17.5 cm\S\2 LVLs ap4 6.6 cm ESV(MOD-sp4) 39.0 ml EF(MOD-sp4) 52.4 % LVAd ap2 25.7 cm\S\2 LVLd ap2 7.9 cm EDV(MOD-sp2) 70.0 ml LVAs ap2 17.9 cm\S\2 LVLs ap2 6.7 cm ESV(MOD-sp2) 41.0 ml EF(MOD-sp2) 41.4 % CO(MOD-sp4) 2.9 l/min CI(MOD-sp4) 1.7 l/min/m\S\2 SV(MOD-sp4) 43.0 ml SI(MOD-sp4) 25.6 ml/m\S\2 CO(MOD-sp2) 2.0 l/min CI(MOD-sp2) 1.2 l/min/m\S\2 SV(MOD-sp2) 29.0 ml SI(MOD-sp2) 17.3 ml/m\S\2 Doppler Measurements and Calculations MV E max teri 94.8 cm/sec MV A max teri 52.3 cm/sec MV E/A 1.8 MV P1/2t max teri 90.7 cm/sec MV P1/2t 95.7 msec MVA(P1/2t) 2.3 cm\S\2 MV dec slope 277.6 cm/sec\S\2 MV dec time 0.17 sec Ao V2 max 132.1 cm/sec Ao max PG 7.0 mmHg Ao max PG (full) 5.5 mmHg LV V1 max PG 1.5 mmHg LV V1 max 61.1 cm/sec PA V2 max 89.6 cm/sec PA max PG 3.3 mmHg PI max teri 225.9 cm/sec PI max PG 20.6 mmHg PI dec slope 153.7 cm/sec\S\2 PI P1/2t 430.4 msec TR max teri 279.6 cm/sec
[2016-07-21] MEDS: SIMVASTATIN 40 MG TAB PO SCH (21:13)
[2016-07-21 23:43] VITALS: BP 102/66; PULSE 58; TEMP 36.5; O2SAT 93
[2016-07-22] MEDS: GABAPENTIN 600MG Q8H DOSE PO SCH ×3 (06:37→21:15)
--- NOTE | 2016-07-22 07:04 | Clinical Documentation Query ---
CLINICAL DOCUMENTATION QUERY 70-y/o chronic smoker who presents with SOB 2/2 malignant pleural effusion. In your clinical opinion is this patient being managed for: ( x ) Chronic systolic (reduced EF) heart failure ( ) Other explanation of clinical findings (Please Explain) ( ) Unable to determine (Please Define) ( ) Need to Discuss ( ) Not Agree The medical record reflects the following clinical findings, treatment, and risk factors. Clinical Indicators: Hx of CHF per H&P, Echo reveals LVEF 40-45%. Grade II diastolic dysfunction Treatment: IV Lasix Risk Factors: Age, afib, hx CHF, ICM, Please clarify and document your clinical opinion in the progress notes and discharge summary. Terms such as "probable", "suspected", "likely", "questionable", "possible", or "still to be ruled out" are acceptable. IF IN AGREEMENT, YOU MUST DOCUMENT ABOVE DIAGNOSTIC STATEMENT IN DAILY PROGRESS NOTES AND DISCHARGE SUMMARY. This document is not part of the patient's record. Thank You, Mat Cavazos, JOSE [phone]
[2016-07-22 07:15] VITALS: BP 114/70; PULSE 61; TEMP 36.5; O2SAT 91
[2016-07-22 07:36] LABS: BASO % 0.3 %; BASO ABS # 0.01 K/uL (0-0.2); COMPLETE YES; EOS % 2.3 %; HEMATOCRIT 30.4 % (37-47); IG% 0.3 %; LYMPH % 19.8 %; LYMPH ABS # 0.77 K/uL (1.2-3.4); MEAN CELL VOLUME 84.7 fL (80-100); MEAN CORPUSCULAR HEMOGLOBIN 27.3 pg (25-34); MEAN CORPUSCULAR HGB CONC 32.2 g/dl (32-36); MEAN PLATELET VOLUME 9.5 fL (7.4-10.4); MONO % 9.3 %; PLATELET COUNT 148 K/uL (130-400); RED BLOOD COUNT 3.59 M/uL (4.2-5.4); WHITE BLOOD COUNT 3.88 K/uL (4.8-10.8)
[2016-07-22 07:52] LABS: INR 1.1 (0.9-1.1)
[2016-07-22 08:03] LABS: BUN/CREATININE RATIO 14.4 (10-20); CALCIUM 8.4 mg/dl (8.5-10.1); CREATININE 1.1 mg/dl (0.60-1.20); POTASSIUM 3.9 mmol/L (3.5-5.1)
[2016-07-22] MEDS: THIAMINE HCL 100 MG TAB PO SCH (08:37)
[2016-07-22] MEDS: MAGNESIUM OXIDE 400 MG TAB PO SCH (08:37)
[2016-07-22] MEDS: DONEPEZIL HCL 10 MG TAB PO SCH (08:37)
[2016-07-22] MEDS: METOPROLOL SUCC 50MG EXT REL TAB PO SCH (08:37)
[2016-07-22] MEDS: SERTRALINE HCL 50 MG TAB PO SCH (08:37)
[2016-07-22] MEDS: PANTOprazole SOD 40 MG TAB PO SCH (08:37)
[2016-07-22] MEDS: ASPIRIN 325 MG ECTAB PO SCH (08:37)
[2016-07-22] MEDS: LISINOPRIL 5 MG TAB PO SCH (08:37)
--- NOTE | 2016-07-22 09:00 | Family Medicine Progress Note ---
Progress Note Date of Service Jul 22, 2016. Subjective Pt evaluation today including: conversation w/ patient, conversation w/ family , physical exam, chart review, lab review, review of studies, review of inpatient medication list Pain: denies pain PO Intake: NPO Voiding: no voiding problems Constitutional: No chills, No fever, No weakness Respiratory: No cough, No shortness of breath Cardiovascular: No chest pain, No edema, No palpitations Abdomen: No constipation, No diarrhea, No nausea, No pain, No vomiting Female : No dysuria, No hematuria, No urinary frequency Neurologic: No numbness/tingling, No weakness Heme: No abnormal bleeding/bruising Medications Current Inpatient Medications Medications (Trade) Dose Ordered Sig/Lazaro Route Start Time Stop Time Status Last Admin Dose Admin Ioversol (Optiray 320) 100 ml UD PRN IV 07/21/16 01:30 07/25/16 01:29 Acetaminophen (Tylenol Tab) 650 mg Q4H PRN PO 07/21/16 01:30 08/20/16 01:29 Polyethylene (Miralax Powder Packet) 17 gm DAILY PRN PO 07/21/16 01:45 08/20/16 01:44 Ondansetron HCl (Zofran Inj) 4 mg Q6H PRN IV 07/21/16 01:30 08/20/16 01:29 Zolpidem Tartrate (Ambien Tab) 5 mg HSZ PRN PO 07/21/16 01:30 08/20/16 01:29 Thiamine HCl (Vitamin B-1 Tab) 100 mg DAILY PO 07/21/16 04:00 08/20/16 03:59 07/22/16 08:37 100 MG Lorazepam (Ativan Tab) 1 mg Q2H PRN PO 07/21/16 01:30 08/20/16 01:29 Aspirin (Ecotrin Tab) 325 mg DAILY PO 07/21/16 08:00 08/20/16 08:59 07/22/16 08:37 325 MG Cyanocobalamin (Vitamin B-12 Tab) 1,000 mcg MoWeFr@0800 PO 07/21/16 08:00 08/20/16 07:59 07/21/16 09:34 1,000 MCG Donepezil HCl (Aricept Tab) 10 mg DAILY PO 07/21/16 08:00 08/20/16 08:59 07/22/16 08:37 10 MG Lisinopril (Zestril Tab) 5 mg DAILY PO 07/21/16 08:00 08/20/16 08:59 07/22/16 08:37 5 MG Magnesium Oxide (Mag-Ox Tab) 400 mg DAILY PO 07/21/16 08:00 08/20/16 08:59 07/22/16 08:37 400 MG Sertraline HCl (Zoloft Tab) 50 mg DAILY PO 07/21/16 08:00 08/20/16 08:59 07/22/16 08:37 50 MG Simvastatin (Zocor Tab) 40 mg QPM PO 07/21/16 21:00 08/20/16 20:59 07/21/16 21:13 40 MG Metoprolol Succinate (Toprol Xl Tab) 100 mg DAILY PO 07/21/16 08:00 08/20/16 08:59 07/22/16 08:37 100 MG Pantoprazole Sodium (Protonix Tab) 40 mg QAM PO 07/21/16 08:00 08/20/16 07:59 07/22/16 08:37 40 MG Folic Acid (Folvite Tab) 1 mg QAM PO 07/21/16 08:00 08/20/16 08:59 07/22/16 08:37 1 MG Gabapentin (Neurontin Tab) 600 mg Q8H PO 07/22/16 06:00 07/22/16 22:01 07/22/16 06:37 600 MG Gabapentin (Neurontin Tab) 600 mg Q12H PO 07/23/16 08:00 07/23/16 20:01 Gabapentin (Neurontin Tab) 600 mg Q24H PO 07/24/16 09:00 07/24/16 09:01 Objective Vital Signs Date Time Temp Pulse Resp B/P Pulse Ox O2 Delivery O2 Flow Rate FiO2 07/22/16 09:05 Room Air 07/22/16 07:15 36.5 61 18 114/70 91 Room Air 07/22/16 00:00 Room Air 07/21/16 23:43 36.5 58 16 102/66 93 Room Air 07/21/16 16:00 92 Room Air 07/21/16 15:26 36.5 63 18 93/58 92 Room Air Physical Exam General Appearance: WD/WN, no apparent distress Eyes: normal inspection, PERRL, sclerae normal Neck: supple, no adenopathy, trachea midline Respiratory/Chest: lungs clear, normal breath sounds, no respiratory distress Cardiovascular: regular rate, rhythm, no edema, no murmur Abdomen: normal bowel sounds, non tender, soft Extremities: no pedal edema, no calf tenderness Neurologic/Psychiatric: alert, normal mood/affect, oriented x 3 Skin: normal color, warm/dry, no rash Laboratory Results Results Past 24 Hours Test 07/22/16 07:15 Range/Units White Blood Count 3.88 4.8-10.8 K/uL Red Blood Count 3.59 4.2-5.4 M/uL Hemoglobin 9.8 12.0-16.0 g/dL Hematocrit 30.4 37-47 % Mean Corpuscular Volume 84.7 80-100 fL Mean Corpuscular Hemoglobin 27.3 25-34 pg Mean Corpuscular Hemoglobin Concent 32.2 32-36 g/dl Platelet Count 148 130-400 K/uL Mean Platelet Volume 9.5 7.4-10.4 fL Neutrophils (%) (Auto) 68.0 % Lymphocytes (%) (Auto) 19.8 % Monocytes (%) (Auto) 9.3 % Eosinophils (%) (Auto) 2.3 % Basophils (%) (Auto) 0.3 % Neutrophils # (Auto) 2.64 1.4-6.5 K/uL Lymphocytes # (Auto) 0.77 1.2-3.4 K/uL Monocytes # (Auto) 0.36 0.11-0.59 K/uL Eosinophils # (Auto) 0.09 0-0.5 K/uL Basophils # (Auto) 0.01 0-0.2 K/uL RDW Standard Deviation 46.2 36.4-46.3 fL RDW Coefficient of Variation 14.9 11.5-14.5 % Immature Granulocyte % (Auto) 0.3 % Immature Granulocyte # (Auto) 0.01 0.00-0.02 K/uL Prothrombin Time 12.0 9.0-12.0 SECONDS Prothromb Time International Ratio 1.1 0.9-1.1 Sodium Level 141 136-145 mmol/L Potassium Level 3.9 3.5-5.1 mmol/L Chloride Level 103 98-107 mmol/L Carbon Dioxide Level 29 21-32 mmol/L Anion Gap 9.0 3-11 mmol/L Blood Urea Nitrogen 16 7-18 mg/dl Creatinine 1.10 0.60-1.20 mg/dl Est Creatinine Clear Calc Drug Dose 39.8 ml/min Estimated GFR () 58.1 Estimated GFR (Non- 50.1 BUN/Creatinine Ratio 14.4 10-20 Random Glucose 80 70-99 mg/dl Calcium Level 8.4 8.5-10.1 mg/dl Total Bilirubin 1.0 0.2-1 mg/dl Direct Bilirubin 0.2 0-0.2 mg/dl Aspartate Amino Transf (AST/SGOT) 20 15-37 U/L Alanine Aminotransferase (ALT/SGPT) 13 12-78 U/L Alkaline Phosphatase 72 45-117 U/L Total Protein 6.2 6.4-8.2 gm/dl Albumin 2.9 3.4-5.0 gm/dl Assessment and Plan 70 yo F w. hx of Paroxysmal Atrial Fibrillation, Non-ischemic CM, Hx of Breast Cancer s/p lumpectomy p/w SOB, admitted with Right Pleural Effusion, s/p Pleurocentesis, feeling better, awaiting pathology SOB -likely due to Right Pleural effusion, suspicious for malignancy based on CT findings - improved s/p pleurocentesis -07/16/16 CT:1. Right pleural effusion. Bilateral pulmonary nodular densities raising the possibility of metastatic disease. - Discussed case with Dr. Jean Baptiste (CT Surgery) - Plan will be to Follow up Pleurocentesis pathology report and evaluate with Bronchoscopy -Preliminary Pleural findings suggest transudate based on Light's Criteria, however pathology needed to rule out malignant effusion Wheeze on exam - no hx of Asthma or COPD - oxygen saturation 93 rm air - Ordered prn duoneb -F/u for improvement Paroxysmal Atrial Fibrillation - rate controlled -Continue to monitor Ischemic CM -stable -Continue Metoprolol Alcohol abuse - Gabapentin protocol - Ativan 1mg q2h PRN if Gabapentin unsuccessful - Last drink 10pm 07/20/16 - Continue B12, Folate, Thiamine replacement --CT Abdomen: findings suggestive for cirrhosis, steatosis. Liver enzymes wnl --INR 1.1 GERD -Continue Protonix Hyperlipidemia -Continue Zocor Continued [facility] stay due to: other (awaiting procedure) Discharge planning: uncertain Resident Tracking Resident Involvement: Resident Care Provided Care Provided: Adult [facility] Medicine Reviewed: Pt Seen/Exam by Me History Pt with ongoing improvement. No SOB at rest or with ambulation to the bathroom , but has not walked further. No chest pain. Eating without issue. No shakiness, hallucinations, etc. Has not required ativan PRN. Agree with HPI/ROS as outlined above. General Appearance: WD/WN, no apparent distress Respiratory: normal breath sounds, no respiratory distress Cardiovascular: normal peripheral pulses, regular rate, rhythm Gastrointestinal: non tender, soft Extremities: non-tender, no pedal edema Neurologic/Psychiatric: alert, oriented x 3 Skin Characteristics: normal color, warm/dry Assessment/Plan Resident Physician Supervision Note: I discussed the case with the resident and agree with the findings and plan as documented in the note. Any exceptions or clarifications are listed here: Documented By: Savi Morales Agree with plan as outlined above Nursing to walk pt more extensively No s/sx of alcohol withdrawal, pt is still within window for occurrence and if needing any PRN ativan, would transfer to tele for closer monitoring ECHO noted Awaiting path for possible bronch later this week, concern for malignancy Pt is managed for chronic CHF
[2016-07-22] MEDS ORDERED: ALBUT/IPRATROP 3MG/0.5MG NEB 3 ML VIAL INH PRN (09:15)
--- NOTE | 2016-07-22 11:46 | SURGERY PROGRESS NOTE ---
DATE: 07/22/2016 DATE: 07/22/2016. Ms. Arita was seen today on 07/23/2015. She feels much better since we performed our thoracentesis. The fluid was evaluated and is a transudate with an LDH of 71. pH was 7.40. Her x-ray looked much better. We still do not have a diagnosis however. She has suspicious nodules in her right lung and I believe that an endobronchial ultrasound as well as a navigational bronchoscopy should be offered. I would like to wait until the cytology is back on her fluid. Should she have a malignant pleural effusion, then we of course would not do any further diagnostic workup.
--- NOTE | 2016-07-22 12:22 | DIAGNOSTIC IMAGING REPORT ---
CT chest super dimensional CHEST SUPERDIMENSIONAL WITHOUT CLINICAL HISTORY: lung nodules lung nodule TECHNIQUE: Transaxial acquisition. Multi axial reformatted images. Preprocedure COMPARISON STUDY: 07/16/2016 FINDINGS: CT of the chest utilizing superior dimensional protocol was performed without contrast enhancement. HISTORY: Of a compared to the prior study of 07/16/2016. There is right pleural effusion. This is slightly diminished in volume from the prior study. Multiple parenchymal nodules throughout both hemithoraces is noted. These are similar in size and dimension as well as outer margin as compared to the prior study. There are no new or interval findings. Bulk of the nodules again occupy the right hemithorax. There is a vague groundglass nodule of the left pulmonary apex. IMPRESSION: Super dimensional CT evaluation for navigational bronchoscopy. Multiple right and to a lesser extent left hemithoracic nodules. These are unchanged. Right pleural effusion minimally diminished in volume from the prior study Electronically signed by: Maksim Causey M.D. 07/22/2016 12:21 PM Dictated Date/Time: 07/22/2016 12:17 PM
[2016-07-22 12:59] VITALS: PULSE 68; O2SAT 95
[2016-07-22] MEDS: ALBUT/IPRATROP 3MG/0.5MG NEB 3 ML VIAL INH SCH ×3 (12:59→19:05)
[2016-07-22 15:23] VITALS: BP 108/65; PULSE 59; TEMP 36.4; O2SAT 94
[2016-07-22 19:06] VITALS: PULSE 74; O2SAT 94
[2016-07-22] MEDS: SIMVASTATIN 40 MG TAB PO SCH (21:13)
[2016-07-22 22:56] VITALS: BP 126/80; PULSE 58; TEMP 36.6; O2SAT 97
[2016-07-22] MEDS: ZOLPIDEM TARTRATE 5 MG TAB PO PRN (23:30)
--- NOTE | 2016-07-23 04:57 | Clinical Documentation Query ---
CLINICAL DOCUMENTATION QUERY 70-y/o chronic smoker who presents with SOB 2/2 malignant pleural effusion. In your clinical opinion is this patient being managed for: ( ) Chronic systolic (reduced EF) heart failure ( ) Other explanation of clinical findings (Please Explain) ( ) Unable to determine (Please Define) ( ) Need to Discuss ( ) Not Agree The medical record reflects the following clinical findings, treatment, and risk factors. Clinical Indicators: Hx of CHF per H&P, Echo reveals LVEF 40-45%. Grade II diastolic dysfunction Treatment: IV Lasix Risk Factors: Age, afib, hx CHF, ICM, Please clarify and document your clinical opinion in the progress notes and discharge summary. Terms such as "probable", "suspected", "likely", "questionable", "possible", or "still to be ruled out" are acceptable. IF IN AGREEMENT, YOU MUST DOCUMENT ABOVE DIAGNOSTIC STATEMENT IN DAILY PROGRESS NOTES AND DISCHARGE SUMMARY. This document is not part of the patient's record. Thank You, Mat Cavazos, RN [phone]
[2016-07-23 07:19] VITALS: PULSE 67; O2SAT 90
[2016-07-23] MEDS: ALBUT/IPRATROP 3MG/0.5MG NEB 3 ML VIAL INH SCH ×4 (07:19→19:21)
[2016-07-23 07:37] VITALS: BP 119/72; PULSE 61; TEMP 36.4; O2SAT 90
[2016-07-23] MEDS: GABAPENTIN 600MG Q12H DOSE PO SCH ×2 (08:35→19:29)
[2016-07-23] MEDS: LISINOPRIL 5 MG TAB PO SCH (08:36)
[2016-07-23] MEDS: ASPIRIN 325 MG ECTAB PO SCH (08:36)
[2016-07-23] MEDS: SERTRALINE HCL 50 MG TAB PO SCH (08:36)
[2016-07-23] MEDS: PANTOprazole SOD 40 MG TAB PO SCH (08:36)
[2016-07-23] MEDS: MAGNESIUM OXIDE 400 MG TAB PO SCH (08:37)
[2016-07-23] MEDS: THIAMINE HCL 100 MG TAB PO SCH (08:37)
[2016-07-23] MEDS: CYANOCOBALAMIN 500 MCG TAB (VIT B-12) PO SCH (08:37)
[2016-07-23] MEDS: METOPROLOL SUCC 50MG EXT REL TAB PO SCH (08:38)
[2016-07-23] MEDS: DONEPEZIL HCL 10 MG TAB PO SCH (08:38)
[2016-07-23 09:09] LABS: HEMATOCRIT 33.7 % (37-47); MEAN CELL VOLUME 87.5 fL (80-100); MEAN CORPUSCULAR HGB CONC 30.9 g/dl (32-36); MEAN PLATELET VOLUME 10.3 fL (7.4-10.4); PLATELET COUNT 166 K/uL (130-400); RED BLOOD COUNT 3.85 M/uL (4.2-5.4); WHITE BLOOD COUNT 4.84 K/uL (4.8-10.8)
[2016-07-23 09:45] LABS: BUN/CREATININE RATIO 14.9 (10-20); CALCIUM 8.4 mg/dl (8.5-10.1); CREATININE 1.2 mg/dl (0.60-1.20); POTASSIUM 4.2 mmol/L (3.5-5.1)
[2016-07-23] MEDS ORDERED: NURSING VERBAL MED ORDER ONE (10:00)
--- NOTE | 2016-07-23 10:08 | Family Medicine Progress Note ---
Progress Note Date of Service Jul 23, 2016. Subjective Pt evaluation today including: conversation w/ patient, conversation w/ family , physical exam, chart review, lab review, review of studies, review of inpatient medication list Pain: denies PO Intake: adequate Voiding: no voiding problems Patient reports no major complaints. She denies SOB, CP, Palpitation. She does report occasional non-productive cough Additional Comments: Constitutional: No chills, No fever, No weakness Respiratory: No cough, No shortness of breath Cardiovascular: No chest pain, No edema, No palpitations Abdomen: No constipation, No diarrhea, No nausea, No pain, No vomiting Female : No dysuria, No hematuria, No urinary frequency Neurologic: No numbness/tingling, No weakness Heme: No abnormal bleeding/bruising Medications Current Inpatient Medications Medications (Trade) Dose Ordered Sig/Lazaro Route Start Time Stop Time Status Last Admin Dose Admin Ioversol (Optiray 320) 100 ml UD PRN IV 07/21/16 01:30 07/25/16 01:29 Acetaminophen (Tylenol Tab) 650 mg Q4H PRN PO 07/21/16 01:30 08/20/16 01:29 Polyethylene (Miralax Powder Packet) 17 gm DAILY PRN PO 07/21/16 01:45 08/20/16 01:44 Ondansetron HCl (Zofran Inj) 4 mg Q6H PRN IV 07/21/16 01:30 08/20/16 01:29 Zolpidem Tartrate (Ambien Tab) 5 mg HSZ PRN PO 07/21/16 01:30 08/20/16 01:29 07/22/16 23:30 5 MG Thiamine HCl (Vitamin B-1 Tab) 100 mg DAILY PO 07/21/16 04:00 08/20/16 03:59 07/23/16 08:37 100 MG Lorazepam (Ativan Tab) 1 mg Q2H PRN PO 07/21/16 01:30 08/20/16 01:29 Aspirin (Ecotrin Tab) 325 mg DAILY PO 07/21/16 08:00 08/20/16 08:59 07/23/16 08:36 325 MG Cyanocobalamin (Vitamin B-12 Tab) 1,000 mcg MoWeFr@0800 PO 07/21/16 08:00 4/12/17 07:59 07/23/16 08:37 1,000 MCG Donepezil HCl (Aricept Tab) 10 mg DAILY PO 07/21/16 08:00 08/20/16 08:59 07/23/16 08:38 10 MG Lisinopril (Zestril Tab) 5 mg DAILY PO 07/21/16 08:00 08/20/16 08:59 Future hold 07/23/16 08:36 5 MG Magnesium Oxide (Mag-Ox Tab) 400 mg DAILY PO 07/21/16 08:00 08/20/16 08:59 07/23/16 08:37 400 MG Sertraline HCl (Zoloft Tab) 50 mg DAILY PO 07/21/16 08:00 08/20/16 08:59 07/23/16 08:36 50 MG Simvastatin (Zocor Tab) 40 mg QPM PO 07/21/16 21:00 08/20/16 20:59 07/22/16 21:13 40 MG Metoprolol Succinate (Toprol Xl Tab) 100 mg DAILY PO 07/21/16 08:00 08/20/16 08:59 07/23/16 08:38 100 MG Pantoprazole Sodium (Protonix Tab) 40 mg QAM PO 07/21/16 08:00 08/20/16 07:59 07/23/16 08:36 40 MG Folic Acid (Folvite Tab) 1 mg QAM PO 07/21/16 08:00 08/20/16 08:59 07/23/16 08:37 1 MG Gabapentin (Neurontin Tab) 600 mg Q12H PO 07/23/16 08:00 07/23/16 20:01 07/23/16 08:35 600 MG Gabapentin (Neurontin Tab) 600 mg Q24H PO 07/24/16 09:00 07/24/16 09:01 Albuterol/ Ipratropium (Duoneb) 3 ml QIDR INH 07/22/16 12:00 08/21/16 11:59 07/23/16 07:19 3 ML Albuterol/ Ipratropium (Duoneb) 3 ml Q2H PRN INH 07/22/16 09:15 08/21/16 09:14 Objective Vital Signs Date Time Temp Pulse Resp B/P Pulse Ox O2 Delivery O2 Flow Rate FiO2 07/23/16 07:37 36.4 61 18 119/72 90 Room Air 07/23/16 07:19 67 16 90 Room Air 07/23/16 00:25 Room Air 07/22/16 22:56 36.6 58 16 126/80 97 Room Air 07/22/16 19:06 74 14 94 Room Air 07/22/16 16:00 Room Air 07/22/16 15:23 36.4 59 16 108/65 94 Room Air 07/22/16 12:59 68 16 95 Room Air Physical Exam Notes: General Appearance: WD/WN, no apparent distress Eyes: normal inspection, PERRL, sclerae normal Neck: supple, no adenopathy, trachea midline Respiratory/Chest: Rt sided crackles, no respiratory distress Cardiovascular: regular rate, rhythm, no edema, no murmur Abdomen: normal bowel sounds, non tender, soft Extremities: no pedal edema, no calf tenderness Neurologic/Psychiatric: alert, normal mood/affect, oriented x 3 Skin: normal color, warm/dry, no rash Laboratory Results Results Past 24 Hours Test 07/23/16 08:53 Range/Units White Blood Count 4.84 4.8-10.8 K/uL Red Blood Count 3.85 4.2-5.4 M/uL Hemoglobin 10.4 12.0-16.0 g/dL Hematocrit 33.7 37-47 % Mean Corpuscular Volume 87.5 80-100 fL Mean Corpuscular Hemoglobin 27.0 25-34 pg Mean Corpuscular Hemoglobin Concent 30.9 32-36 g/dl RDW Standard Deviation 48.2 36.4-46.3 fL RDW Coefficient of Variation 15.2 11.5-14.5 % Platelet Count 166 130-400 K/uL Mean Platelet Volume 10.3 7.4-10.4 fL Sodium Level 139 136-145 mmol/L Potassium Level 4.2 3.5-5.1 mmol/L Chloride Level 103 98-107 mmol/L Carbon Dioxide Level 29 21-32 mmol/L Anion Gap 7.0 3-11 mmol/L Blood Urea Nitrogen 18 7-18 mg/dl Creatinine 1.20 0.60-1.20 mg/dl Est Creatinine Clear Calc Drug Dose 36.8 ml/min Estimated GFR () 52.3 Estimated GFR (Non- 45.1 BUN/Creatinine Ratio 14.9 10-20 Random Glucose 136 70-99 mg/dl Calcium Level 8.4 8.5-10.1 mg/dl Assessment and Plan 70 yo F w. hx of Paroxysmal Atrial Fibrillation, Non-ischemic CM, Hx of Breast Cancer s/p lumpectomy p/w SOB, admitted with Right Pleural Effusion, s/p Pleurocentesis, feeling better SOB -likely due to Right Pleural effusion, suspicious for malignancy based on CT findings - improved s/p pleurocentesis -07/16/16 CT:1. Right pleural effusion. Bilateral pulmonary nodular densities raising the possibility of metastatic disease. - Discussed case with Dr. Jean Baptiste (CT Surgery) - Plan will be to Follow up Pleurocentesis pathology report and evaluate with Bronchoscopy -Preliminary Pleural findings suggest transudate based on Light's Criteria, -Pleural fluid Pathology shows NO malignant Cells -CT shows:Multiple right and to a lesser extent left hemithoracic nodules, unchanged. Right pleural effusion minimally diminished in volume from the prior study -Plan for Bronchoscopy this week. F/u With Dr. Jean Baptiste Wheeze on exam -resolved s/p duoneb treatment - oxygen saturation 93 rm air -Continue to monitor Paroxysmal Atrial Fibrillation - rate controlled -Continue to monitor Ischemic CM -stable -Continue Metoprolol Alcohol abuse - Gabapentin protocol - Ativan 1mg q2h PRN if Gabapentin unsuccessful - Last drink 10pm 07/20/16 - Continue B12, Folate, Thiamine replacement --CT Abdomen: findings suggestive for cirrhosis, steatosis. Liver enzymes wnl --INR 1.1 GERD -Continue Protonix Hyperlipidemia -Continue Zocor Resident Tracking Resident Involvement: Resident Care Provided Care Provided: Adult Hospital Medicine Reviewed: Pt Seen/Exam by Me History Pt continues to feel improved. She was able to wash up today without becoming SOB. Has been ambulating around her room as well. Still without s/sx of alcohol withdrawal. No chest pain. Tolerating PO without issue. Agree with HPI/ROS as noted. General Appearance: WD/WN, no apparent distress Respiratory: no respiratory distress, crackles (R base, scant) Cardiovascular: normal peripheral pulses, regular rate, rhythm Gastrointestinal: non tender, soft Extremities: non-tender, no pedal edema Neurologic/Psychiatric: alert, normal mood/affect Skin Characteristics: normal color, warm/dry Assessment/Plan Resident Physician Supervision Note: I discussed the case with the resident and agree with the findings and plan as documented in the note. Any exceptions or clarifications are listed here: Documented By: Savi Morales Agree with plan as outlined above Nursing to walk pt more No s/sx of alcohol withdrawal, pt is still within window for occurrence and if needing any PRN ativan, would transfer to tele for closer monitoring ECHO noted Path neg for malignancy, CT chest noted for R>L hemithoracic nodules. Bronch tomorrow given concern for malignancy R pleural effusion has started to return, asx with that Pt is managed for chronic CHF
[2016-07-23 11:19] VITALS: PULSE 61; O2SAT 93
--- NOTE | 2016-07-23 11:56 | SURGERY PROGRESS NOTE ---
DATE: 07/23/2016 DATE: 07/23/2016. Ms. Arita was seen today. She is still sleepy but awakens easily. I had a long talk about our findings and that the pleural fluid shows no evidence of malignancy. I still am quite suspicious that the patient has primary lung carcinoma and have offered her an endobronchial ultrasound with biopsy as well as a navigational bronchoscopy tomorrow. She understands and would like to proceed.
--- NOTE | 2016-07-23 12:38 | Anesthesiology Progress Note ---
Pre-OP Anesthesia Assessment Date of Note Jul 23, 2016. Review patient information reviewed, chart reviewed, labs reviewed, acceptable for surgery Notes I saw this pt for pre-op eval for EBUS, navigational bronch by Dr. Jean Baptiste tomorrow. She presented w/ several weeks of SOB and was found to have pulmonary nodules and a pleural effusion. She's now feeling much better s/p thoracentesis (transudate, benign cells). The concern is for lung CA given her at least 75 pack year smoking history. She also drinks whiskey daily. The exact amount is hard to determine, maybe about 4 shots per day. She has stopped drinking for days at a time in the past and has never had withdrawal symptoms. 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 TTE from 07/21/16 shows EF 40-45%, mild-mod global hypokinesis, mild-mod MR, grade II d.d., mild pulmonary HTN. No previous problems w/ anesthesia for appe, tubal , lumpectomy. On exam, she is sitting up in bed in no distress, awake and alert. Afebrile w/ stable vitals on room air. Airway shows somewhat limited cervical extension, MP 3, TMD 3 f.b., upper and lower dentures. Decreased breath sounds on the R side, otherwise clear. Heart RRR. Labs unremarkable aside from anemia w/ Hgb/Hct 10.4/33.7. EKG shows SR, R-axis, ST/T abnormalities suggesting lateral ischemia. CXR shows improved aeration of the R lung base, RUL nodules. The pt is appropriate for the intended procedure under GETA. She does have the possible ischemic changes on EKG but she had a reasonable functional capacity (12 steps w/out stopping w/out CP or SOB) until recently and an ischemic work-up is unlikely to change her management. She needs to have the procedure done to assess for CA. I consented her for GA and answered questions. She'll be NPO after midnight except meds w/ sips of water.
[2016-07-23 15:42] VITALS: PULSE 61; O2SAT 93
[2016-07-23 15:50] VITALS: BP 110/71; PULSE 58; TEMP 36.7; O2SAT 93
[2016-07-23 19:21] VITALS: PULSE 86; O2SAT 94
[2016-07-23] MEDS: ZOLPIDEM TARTRATE 5 MG TAB PO PRN (21:11)
[2016-07-23] MEDS: SIMVASTATIN 40 MG TAB PO SCH (21:11)
[2016-07-24] VITALS (8 sets, daily range): BP systolic 114–134; BP diastolic 64–83; PULSE 59–65; TEMP 36–36.8; O2SAT 89–97
[2016-07-24] MEDS ORDERED: MIDAZOLAM HCL 1 MG/ML 2ML VIAL ONE (06:19)
[2016-07-24] MEDS ORDERED: NEOSTIGMINE METHYLSULFATE 5 MG/5 ML SYR ONE (06:19)
[2016-07-24] MEDS ORDERED: LIDOCAINE HCL 2% 2 ML VIAL (20MG/ML) ONE (06:19)
[2016-07-24] MEDS ORDERED: CLINDAMYCIN PHOS 150 MG/ML 2 ML VIAL ONE (06:19)
[2016-07-24] MEDS ORDERED: FENTANYL CITRATE INJ 50 MCG/1 ML 2 ML VIAL ONE ×2 (06:19→09:01)
[2016-07-24] MEDS ORDERED: ROCURONIUM BROMIDE 10 MG/ML 5 ML VIAL ONE (06:19)
[2016-07-24] MEDS ORDERED: ONDANSETRON INJ 2 MG/ML 2 ML VIAL ONE (06:19)
[2016-07-24] MEDS ORDERED: PROPOFOL IV EMULSION 10 MG/ML 20 ML VIAL IV ONE (06:19)
[2016-07-24] MEDS ORDERED: GLYCOPYRROLATE INJ 0.2 MG/ML VIAL ONE (06:19)
[2016-07-24] MEDS ORDERED: DEXAMETHASONE SOD INJ 4 MG/ML VIAL ONE (06:19)
[2016-07-24 06:32] LABS: MEAN CELL VOLUME 86.8 fL (80-100); MEAN CORPUSCULAR HEMOGLOBIN 27.4 pg (25-34); MEAN CORPUSCULAR HGB CONC 31.5 g/dl (32-36); MEAN PLATELET VOLUME 10.7 fL (7.4-10.4); PLATELET COUNT 164 K/uL (130-400); WHITE BLOOD COUNT 4.26 K/uL (4.8-10.8)
[2016-07-24 07:08] LABS: BUN/CREATININE RATIO 18.4 (10-20); CALCIUM 8.6 mg/dl (8.5-10.1); POTASSIUM 4.5 mmol/L (3.5-5.1)
--- NOTE | 2016-07-24 07:17 | History & Physical Bridge Note ---
H&P Re-Evaluation Bridge Note: I have examined the patient, reviewed the History & Physical and in the interval since the performance of the History & Physical I have noted the following changes of clinical significance: No changes noted
[2016-07-24] MEDS: ALBUT/IPRATROP 3MG/0.5MG NEB 3 ML VIAL INH SCH ×2 (07:36→10:42)
[2016-07-24] MEDS ORDERED: EpHEDrine SULFATE 50MG/5ML SYR ONE (07:42)
[2016-07-24] MEDS ORDERED: ETOMIDATE 2 MG/ML 20 ML VIAL IV ONE (07:43)
[2016-07-24] MEDS ORDERED: LARYING-O-JET KIT (LTA) EXT ONE ×2 (07:47)
[2016-07-24] MEDS ORDERED: GABAPENTIN 600MG X1 DOSE PO SCH (09:00)
--- NOTE | 2016-07-24 09:25 | DIAGNOSTIC IMAGING REPORT ---
INTRAOPERATIVE RADIOGRAPHS CLINICAL HISTORY: Navigational bronchoscopy. Fluoroscopy time: 179 seconds. FINDINGS: 2 spot fluoroscopic views of the right chest from a bronchoscopy procedure are presented. Correlation is made with chest CT dated 07/16/2016. The bronchoscope projects over the right mid to upper lobe on both images. No obvious pneumothorax is seen on these fluoroscopic views. IMPRESSION: Intraoperative bronchoscopy images as above. See operative report for detailed findings. Electronically signed by: Ryne Day M.D. 07/24/2016 9:24 AM Dictated Date/Time: 07/24/2016 9:23 AM
[2016-07-24] MEDS ORDERED: ATROPINE SULFATE 0.1 MG/ML 5ML SYR IV PRN (09:45)
[2016-07-24] MEDS ORDERED: EpHEDrine SULFATE INJ 50 MG/ML AMP IV PRN (09:45)
--- NOTE | 2016-07-24 09:55 | DIAGNOSTIC IMAGING REPORT ---
CHEST ONE VIEW PORTABLE CLINICAL HISTORY: s/p bronch with bx. COMPARISON STUDY: 07/21/2016 FINDINGS: No evidence pneumothorax status post bronchoscopy. Interval development of right mid and lower lung parenchymal infiltrative process. Mild prominence of pulmonary vasculature. IMPRESSION: 1. No evidence pneumothorax. 2. Interval development of and/or progression of a right mid to lower lung infiltrative process. Electronically signed by: Maksim Causey M.D. 07/24/2016 9:54 AM Dictated Date/Time: 07/24/2016 9:53 AM
--- NOTE | 2016-07-24 09:55 | Anesthesiology Progress Note ---
Anesthesia Post Op Note Date & Time Jul 24, 2016 at 09:55 Vital Signs Pain Intensity: 0 Vital Signs Past 12 Hours Date Time Temp Pulse Resp B/P Pulse Ox O2 Delivery O2 Flow Rate FiO2 07/24/16 09:45 67 16 134/73 96 Nasal Cannula 2 07/24/16 09:35 65 12 141/69 100 Mask 10 07/24/16 09:26 36.1 70 12 127/70 100 Mask 10 07/24/16 02:57 36.5 61 16 123/80 92 Room Air 07/24/16 00:30 36.3 59 16 117/77 95 Room Air 07/24/16 00:00 Room Air Notes Mental Status: alert / awake / arousable, participated in evaluation Pt Amnestic to Procedure: Yes Nausea / Vomiting: adequately controlled Pain: adequately controlled Airway Patency, RR, SpO2: stable & adequate BP & HR: stable & adequate Hydration State: stable & adequate Anesthetic Complications: no major complications apparent
[2016-07-24] MEDS: DONEPEZIL HCL 10 MG TAB PO SCH (11:05)
[2016-07-24] MEDS: PANTOprazole SOD 40 MG TAB PO SCH (11:06)
[2016-07-24] MEDS: ASPIRIN 325 MG ECTAB PO SCH (11:07)
[2016-07-24] MEDS: THIAMINE HCL 100 MG TAB PO SCH (11:07)
[2016-07-24] MEDS: LISINOPRIL 5 MG TAB PO SCH (11:07)
[2016-07-24] MEDS: METOPROLOL SUCC 50MG EXT REL TAB PO SCH (11:08)
[2016-07-24] MEDS: MAGNESIUM OXIDE 400 MG TAB PO SCH (11:08)
[2016-07-24] MEDS: SERTRALINE HCL 50 MG TAB PO SCH (11:08)
[2016-07-24] MEDS ORDERED: ALBUTEROL HFA 8 GM INHALER INH PRN (11:15)
--- NOTE | 2016-07-24 11:37 | Discharge Instructions ---
Discharge Instructions Date of Service Jul 24, 2016. Admission Reason for Admission: Alcohol Abuse, Pleural Effusion Discharge Discharge Diagnosis / Problem: Alcohol abuse, Pleural Effusion Discharge Goals Goal(s): Decrease discomfort, Improve function, Increase independence, Improve disease control, Improve nutritional status, Learn about illness, Diagnostic testing, Therapeutic intervention, Screening, Prevent Disease Progression, Specific goals Activity Recommendations Activity Limitations: per Instructions/Follow-up section . Instructions / Follow-Up Instructions / Follow-Up You came in with Shortness of Breath due to a Pleural effusion (Increased fluid around the lung). Cardiothoracic Surgery performed a pleurocentesis to remove fluid and determine if there were cancer cells in the fluid. This test was negative. You then has a bronchoscopy for further evaluation. Results are pending and you will need a follow up appointment in the next [address] Jean Baptiste to discuss the findings. - Please Followup with Dr. Jean Baptiste within 2 weeks -Take medication as directed -You will be going home with an albuterol inhaler that you can use as needed for wheezing and chest tightness -If you experience worsening of symptoms after discharge, please call clinic or go to Emergency Department -Please followup with your primary care provider within 2 weeks of discharge from hospital Current Hospital Diet Patient's current hospital diet: AHA Diet (Heart Healthy) Discharge Diet Recommended Diet: Regular Diet Procedures Procedures Performed: Navigational Bronchoscopy; Endobronchial Ultrasound Pending Studies Studies pending at discharge: yes List of pending studies: Pleural Fluid cultures Bronchial washing Medical Emergencies . Who to Call and When: Medical Emergencies: If at any time you feel your situation is an emergency, please call 911 immediately. . Non-Emergent Contact Non-Emergency issues call your: Primary Care Provider, Specialist ( Cardiothoracic Surgeon) Call Non-Emergent contact if: you have a fever, your pain is not controlled, your pain is worsening, your pain is unusual for you, your pain is concerning you, wound has increased drainage, wound has increased redness, wound has increased pain, you have any medication questions . . "Provider Documentation" section prepared by Harry Murray. VTE Core Measure Inpt VTE Proph given/why not?: SCD's
[2016-07-24] MEDS ORDERED: PRVHFAIN INH (11:52)
--- NOTE | 2016-07-24 13:25 | OPERATIVE REPORT ---
DATE OF OPERATION: 07/24/2016 PREOPERATIVE DIAGNOSES: Pulmonary nodules in a patient with a history of cigarette smoking. POSTOPERATIVE DIAGNOSES: Same. PROCEDURE: 1. Endobronchial ultrasound with biopsy. 2. Navigational bronchoscopy with biopsies. SURGEON: Dr. Jean Baptiste. WAFER ABRADING MACHINE TENDER: Santiago Hooker PA-C. ANESTHESIA: General anesthesia with endotracheal intubation. INDICATION FOR PROCEDURE AND FINDINGS: Sarah Arita is a 70-year-old heavy smoker and drinker, who presented with acute shortness of breath with pleural effusion on the right. I did a thoracentesis and she improved after we drained several hundred mL of fluid off. She still has some pulmonary nodules and this was known and she is actually scheduled to see me in the office. I felt that an endobronchial ultrasound with biopsy for completeness sake in addition to navigational bronchoscopy was indicated. She is at high risk of cancer. The patient has a small peripheral nodule left upper lobe, larger more ominous appearing nodule in the right upper lobe as well as the right middle lobe and there was 1 right on the fissure of the lower lobe; however, that was difficult to get to. I actually mapped 3 of these lesions; however, I did not think the left upper lobe was going to be a good biopsy given its peripheral nature and small size. On 07/24/2016 the patient was brought to the operating room and underwent uncomplicated intubation with a large endotracheal tube. I then did endobronchial biopsy. These lymph nodes were all very small. I biopsied the left level 10, left level 11, level 7, right level 10 lymph nodes several times. We got some lymph node tissue back, we saw no evidence of malignancy. I then switched her over to a navigational bronchoscopy and biopsied the right upper lobe and right middle lobe masses. I attempted the left upper lobe mass but it was simply too small and I could not get much my navigational probe out to this area. We did do biopsies. Rapid onsite evaluation showed no evidence of malignancy. PROCEDURE: The patient was brought to the operating position and laid supine position. General anesthesia induced and endotracheal intubation was performed. The endobronchial ultrasound was placed. It should be noted, these nodes were small but for completeness sake, I felt this was indicated. I came upon a small left level 10 node and biopsied this as well as as level 11 node on the left. I then biopsied the level 7 node from both the right and the left side and then the right level 10 nodes. There was no significant bleeding with these nodes. I irrigated out both sides and there was some purulent appearing mucus on the left side, which appeared to be fairly tenacious. I irrigated this out, collected it and sent it off to the lab for a Gram stain and culture. I really had very little in the way of bleeding from any of these sites. After I irrigated out both sides I then switched over to a regular bronchoscope and came down and again did not see much in the way of bleeding after a small amount of blood had been irrigated away. We then went up to the right upper lobe mass first and after properly registering the right and left airway I then went up into the right upper lobe with my navigational probe and got out to this mass. It appeared to be right in the mass and we did see some abnormalities on the radial ultrasound. I then used several brushes, needle biopsies and forceps biopsies of this area. We got into minor bleeding which was controlled simply by awaiting and irrigating out with cold saline. Attention was then turned towards the middle lobe mass and again we came into this, and I could see it what the radial ultrasound probe. I then biopsied this several times with brush and washings. It was more of a cystic mass. I did not think putting a needle, biopsies and forceps in this was worth the risk. We got very little in the way of bleeding. I then attempted to navigate out to the left upper lobe nodule; however, could not get close to it. It should be noted I took washings of the right upper lobe and right middle lobe for cytology. I then irrigated out both airways nicely and it was nice and dry. I then removed the bronchoscope. She tolerated it well. I attest to the content of the Intraoperative Record and any orders documented therein. Any exceptio ns are noted below.
--- NOTE | 2016-07-24 20:09 | Discharge Summary ---
Discharge Summary Date of Service Jul 24, 2016. (Harry Murray MD) Discharge Summary Admission Date: Jul 21, 2016 at 01:30 Discharge Date: Jul 24, 2016 Discharge Disposition: Home Principal Diagnosis: Alcohol abuse, Pleural Effusion Procedures: Pleurocentesis: no Malignant cells on pathology Endobronchial ultrasound with biopsy. Navigational bronchoscopy with biopsies CT SCAN OF THE ABDOMEN AND PELVIS WITH IV CONTRAST CLINICAL HISTORY: Alcoholism. Pulmonary nodules. COMPARISON STUDY: Renal ultrasound dated 01/22/2016. Chest CT dated 07/16/2016. TECHNIQUE: Following the IV administration of 92 cc of Optiray 320, CT scan of the abdomen and pelvis is performed from the lung bases to the proximal femora. Images are reviewed in the axial, sagittal, and coronal planes. IV contrast was administered without complication. Automated dose control exposure was utilized. The examination is degraded by streak artifact from the patient's arms which could not be elevated above the abdomen. CT DOSE: 351.92 mGy.cm FINDINGS: Lung bases: The heart is enlarged and without pericardial effusion. There are coronary artery calcifications. There is a moderate right pleural effusion with associated atelectasis. The left lung base appears clear. Liver: The contrast-enhanced liver is cirrhotic in morphology and demonstrates heterogeneously diminished attenuation consistent with steatosis. There is nodularity of the surface contour. There is no intrahepatic biliary ductal dilatation. The hepatic veins and portal veins are patent. Gallbladder: Unremarkable. Spleen: Normal in size and attenuation. Pancreas: Moderately atrophic and grossly unremarkable. Adrenal glands: Unremarkable. Kidneys: The contrast enhanced kidneys are atrophic and without hydronephrosis. The right kidney is located in the pelvis. The kidneys enhance symmetrically. Abdominal vasculature: The abdominal aorta is normal in course and caliber noting moderate to advanced atherosclerotic calcification. Bowel: The small bowel and colon are normal in course and caliber. There is mild to moderate diverticulosis of left colon without CT evidence of acute diverticulitis. Colonic fecal retention is observed. The appendix is not visualized. Peritoneum: There is no intraperitoneal free air or abdominal ascites. Lymphadenopathy: None. Pelvic viscera: The bladder is normal as visualized. The uterus is surgically absent. No adnexal lesion is seen. Pelvic floor prolapse is suggested. Skeletal structures: The skeletal structures are osteopenic. There is moderate lumbosacral spondylosis scoliosis. No lytic or blastic lesions are seen. Soft tissues: There is body wall edema. IMPRESSION: 1. The liver demonstrates changes of cirrhosis and steatosis. 2. No acute infectious or inflammatory findings are identified in the abdomen or pelvis. 3. Moderate right pleural effusion with associated atelectasis. 4. There is diverticulosis of the left colon without CT evidence of acute diverticulitis. 5. Body wall edema is noted. 6. Cardiomegaly. 7. Additional changes as above. CHEST ONE VIEW PORTABLE HISTORY: s/p thoracentesis COMPARISON: Chest 07/20/2016. FINDINGS: Small right pleural effusion persist. The heart remains borderline enlarged. No pneumothorax. Linear scarlike density within the right midlung zone. Improved aeration within the right lung base. Surgical clips within the left chest wall. Right upper lobe nodules are again noted. IMPRESSION: 1. No pneumothorax. 2. Improved aeration within the right lung base. 3. Right upper lobe nodules again noted. CT chest super dimensional CHEST SUPERDIMENSIONAL WITHOUT CLINICAL HISTORY: lung nodules lung nodule TECHNIQUE: Transaxial acquisition. Multi axial reformatted images. Preprocedure COMPARISON STUDY: 07/16/2016 FINDINGS: CT of the chest utilizing superior dimensional protocol was performed without contrast enhancement. HISTORY: Of a compared to the prior study of 07/16/2016. There is right pleural effusion. This is slightly diminished in volume from the prior study. Multiple parenchymal nodules throughout both hemithoraces is noted. These are similar in size and dimension as well as outer margin as compared to the prior study. There are no new or interval findings. Bulk of the nodules again occupy the right hemithorax. There is a vague groundglass nodule of the left pulmonary apex. IMPRESSION: Super dimensional CT evaluation for navigational bronchoscopy. Multiple right and to a lesser extent left hemithoracic nodules. These are unchanged. Right pleural effusion minimally diminished in volume from the prior study INTRAOPERATIVE RADIOGRAPHS CLINICAL HISTORY: Navigational bronchoscopy. Fluoroscopy time: 179 seconds. FINDINGS: 2 spot fluoroscopic views of the right chest from a bronchoscopy procedure are presented. Correlation is made with chest CT dated 07/16/2016. The bronchoscope projects over the right mid to upper lobe on both images. No obvious pneumothorax is seen on these fluoroscopic views. IMPRESSION: Intraoperative bronchoscopy images as above. See operative report for detailed findings. Consultations: Cardiothoracic Surgery (Harry Murray MD) Medication Reconciliation New Medications: Albuterol (Ventolin Hfa) 60 Puffs/5400 Mcg Aers 2 PUFFS INH Q6 PRN for Wheezing for 30 Days, 1 Refill Use as needed for Chest tightness, Wheezing Continued Medications: Aspirin (Aspirin Ec) 325 Mg Tab 325 MG PO DAILY Cyanocobalamin (Vitamin B-12) 1,000 Mcg Tab 1000 MCG PO 3XWK, TAB Donepezil Hydrochloride (Aricept) 10 Mg Tab 10 MG PO DAILY, TAB Folic Acid (Folvite) 1 Mg Tab 1 MG PO DAILY, TAB Lisinopril (Zestril) 5 Mg Tab 5 MG PO DAILY, TAB Magnesium Oxide (Mag-Ox) 400 Mg Tab 400 MG PO DAILY, TAB Metoprolol Succinate (Metoprolol Succinate ER) 100 Mg Tabcr 100 MG PO DAILY Omeprazole (Prilosec) 20 Mg Capcr 20 MG PO DAILY, CAP Sertraline (Zoloft) 50 Mg Tab 50 MG PO DAILY, TAB Simvastatin (Zocor) 40 Mg Tab 40 MG PO QPM, TAB Discharge Exam Patient was s/p Bronchoscopy. Patient reported no major complaints.tolerated procedure well. She denies SOB, CP, Palpitation. She reported soar throat stemming from procedure. NO n/v, abdominal pain. Constitutional: No chills, No fever, No weakness Respiratory: No cough, No shortness of breath Cardiovascular: No chest pain, No edema, No palpitations Abdomen: No constipation, No diarrhea, No nausea, No pain, No vomiting Female : No dysuria, No hematuria, No urinary frequency Neurologic: No numbness/tingling, No weakness Heme: No abnormal bleeding/bruising General Appearance: WD/WN, no apparent distress Eyes: normal inspection, PERRL, sclerae normal Neck: supple, no adenopathy, trachea midline Respiratory/Chest: mild crackles slime, no respiratory distress Cardiovascular: regular rate, rhythm, no edema, no murmur Abdomen: normal bowel sounds, non tender, soft Extremities: no pedal edema, no calf tenderness Neurologic/Psychiatric: alert, normal mood/affect, oriented x 3 Skin: normal color, warm/dry, no rash (Harry Murray MD) Hospital Course 70 yo F w. hx of Paroxysmal Atrial Fibrillation, Non-ischemic CM, Hx of Breast Cancer s/p lumpectomy p/w SOB, admitted with Right Pleural Effusion, s/p Pleurocentesis, s/p Bronchoscopy SOB -likely due to Right Pleural effusion, suspicious for malignancy based on CT findings - improved s/p pleurocentesis -07/16/16 CT:1. Right pleural effusion. Bilateral pulmonary nodular densities raising the possibility of metastatic disease. - Discussed case with Dr. Jean Baptiste (CT Surgery) - Plan will be to Follow up Pleurocentesis pathology report and evaluate with Bronchoscopy -Preliminary Pleural findings suggest transudate based on Light's Criteria, -Pleural fluid Pathology shows NO malignant Cells -CT shows:Multiple right and to a lesser extent left hemithoracic nodules, unchanged. Right pleural effusion minimally diminished in volume from the prior study -S/P Bronchoscopy -Discharged with outpatient followup with Dr. Jean Baptiste within 2 wks Wheeze on exam -resolved s/p duoneb treatment - oxygen saturation 93 rm air Paroxysmal Atrial Fibrillation - rate controlled Ischemic CM -stable Alcohol abuse - Gabapentin protocol - Ativan 1mg q2h PRN if Gabapentin unsuccessful - Last drink 10pm 07/20/16 - Continue B12, Folate, Thiamine replacement --CT Abdomen: findings suggestive for cirrhosis, steatosis. Liver enzymes wnl --INR 1.1 GERD -Continue Protonix Hyperlipidemia -Continue Zocor Total Time Spent: Less than 30 minutes This includes examination of the patient, discharge planning, medication reconciliation, and communication with other providers. (Harry Murray MD) Discharge Instructions Please refer to the electronic Patient Visit Report (Discharge Instructions) for additional information. (Harry Murray MD) Follow-Up Cardiothoracic Surgery (Dr. Jean Baptiste) (Harry Murray MD) Additional Copies To John Dial D.O.Int.Med. Resident Tracking Resident Involvement: Resident Care Provided Care Provided: Adult Hospital Medicine (Harry Murray MD) Reviewed: Pt Seen/Exam by Me (Savi Morales DO) History Pt is doing well s/p bronch. No chest pain. Awaiting diet, but has had no issues tolerating PO. She has had no sx concerning for alcohol withdrawal. Agree with HPI/ROS as noted. (Savi Morales DO) General Appearance: WD/WN, no apparent distress Respiratory: no respiratory distress, wheezing (diffuse, s/p neb) Cardiovascular: normal peripheral pulses, regular rate, rhythm Gastrointestinal: non tender, soft Extremities: non-tender, no pedal edema Neurologic/Psychiatric: alert, normal mood/affect Skin Characteristics: normal color, warm/dry (Savi Morales, ) Assessment/Plan Resident Physician Supervision Note: I discussed the case with the resident and agree with the findings and plan as documented in the note. Any exceptions or clarifications are listed here: Documented By: Savi Morales Agree with plan as outlined above ECHO noted Path neg for malignancy, CT chest noted for R>L hemithoracic nodules. Bronch today with path pending R pleural effusion has started to return, asx Pt is managed for chronic CHF No s/sx of alcohol withdrawal during admission despite hx of heavy alcohol use. I had a giancarlo discussion with pt on d/c regarding ongoing use. Pt offered scripts that she could be tapered off of with PCP. She states that she prefers to return home to drink as she was prior with self taper that she had been working on since her move to [place]. We did discuss the risks associated with this and she is aware that the level of alcohol that she consumes is unsafe. She is aware that is she wants to stop use, she should discuss with her PCP and use an rx taper as we were using while hospitalized. (Savi Morales, DO)
[2016-08-22] MEDS ORDERED: FURO-85 PO (08:01)
== END 2016-07-24 14:47 | disposition home or self-care (01) | DRG 168 ==
LOC: ENRESERVTM → ENRESERVDT → C.EDB 22:25 → C.4E 07-21 01:30
PROVIDERS: ADMIT Hospitalist; ATTEND Family Medicine
PROC: 0W993ZX Drainage of Right Pleural Cavity, Percutaneous Approach, Diagnostic (ICD-10-PCS; principal; 2016-07-21)
PROC: 0BB48ZX Excision of Right Upper Lobe Bronchus, Via Natural or Artificial Opening Endoscopic, Diagnostic (ICD-10-PCS; 2016-07-24 07:15)
PROC: 0BB58ZX Excision of Right Middle Lobe Bronchus, Via Natural or Artificial Opening Endoscopic, Diagnostic (ICD-10-PCS; 2016-07-24 07:15)
PROC: 07B74ZX Excision of Thorax Lymphatic, Percutaneous Endoscopic Approach, Diagnostic (ICD-10-PCS; 2016-07-24 07:15)
DX: J90 Pleural effusion, not elsewhere classified (principal); F10.10 Alcohol abuse, uncomplicated; R91.8 Other nonspecific abnormal finding of lung field; R06.02 Shortness of breath; R53.81 Other malaise; I48.0 Paroxysmal atrial fibrillation; I48.2 Chronic atrial fibrillation; I25.5 Ischemic cardiomyopathy; I50.9 Heart failure, unspecified; I10 Essential (primary) hypertension; K21.9 Gastro-esophageal reflux disease without esophagitis; E78.00 Pure hypercholesterolemia, unspecified; E78.5 Hyperlipidemia, unspecified; J44.9 Chronic obstructive pulmonary disease, unspecified; K58.0 Irritable bowel syndrome with diarrhea; F03.90 Unspecified dementia, unspecified severity, without behavioral disturbance, psychotic disturbance, mood disturbance, and anxiety; F32.9 Major depressive disorder, single episode, unspecified; F41.9 Anxiety disorder, unspecified; F17.210 Nicotine dependence, cigarettes, uncomplicated; Z85.3 Personal history of malignant neoplasm of breast; Z79.82 Long term (current) use of aspirin; Z79.899 Other long term (current) drug therapy

== ENCOUNTER → 2016-08-14 | Outpatient (CLI) | payer OTHER ==
[~2016-08-14] MED LIST changes: +FURO-85 PO; +LISI-729 PO; +PRVHFAIN INH; +TPRSR/100 PO; +TRAM-10 PO
--- NOTE | 2016-08-14 16:16 | DIAGNOSTIC IMAGING REPORT ---
CHEST 2 VIEWS ROUTINE CLINICAL HISTORY: Dyspnea on exertion.] Pleural effusion. COMPARISON STUDY: Chest CT July 22, 2016 and chest radiograph July 24, 2016 FINDINGS: There are left axillary surgical clips. There is no pneumothorax. A moderate to large right pleural effusion has slightly increased in size since prior exam. Interstitial thickening is slightly improved. Several right upper lobe nodules are again noted. IMPRESSION: 1. Mild increase in size of a moderate to large right pleural effusion. 2. Interval improvement in pulmonary edema. 3. Redemonstration of several indeterminate right upper lobe pulmonary nodules. Electronically signed by: Azeem Wharton M.D. 08/14/2016 4:14 PM Dictated Date/Time: 08/14/2016 4:09 PM
== END | disposition home or self-care (01) ==
LOC: C.RAD1850 15:58
PROVIDERS: ATTEND Physician Assistant
DX: J90 Pleural effusion, not elsewhere classified (principal); R06.09 Other forms of dyspnea; R91.8 Other nonspecific abnormal finding of lung field

== ENCOUNTER → 2016-08-21 | Outpatient (CLI) | payer OTHER ==
--- NOTE | 2016-08-21 15:42 | DIAGNOSTIC IMAGING REPORT ---
CHEST 2 VIEWS ROUTINE CLINICAL HISTORY: PLEURAL EFFUSION ON RIGHT COMPARISON STUDY: 08/14/2016 FINDINGS: Small right pleural effusion. Slightly diminished in volume from the prior exam. Subsegmental atelectasis right base. Left lung remains clear. IMPRESSION: Slight decrease in volume of right pleural effusion. Interval subsegmental atelectasis right base. Electronically signed by: Maksim Causey M.D. 08/21/2016 3:40 PM Dictated Date/Time: 08/21/2016 3:35 PM
[2016-08-21 16:58] LABS: BLOOD UREA NITROGEN 14 mg/dl (7-18); BUN/CREATININE RATIO 14.2 (10-20); CALCIUM 7.9 mg/dl (8.5-10.1); CARBON DIOXIDE 35 mmol/L (21-32); CHLORIDE 105 mmol/L (98-107); CREATININE 0.97 mg/dl (0.60-1.20); GLUCOSE 110 mg/dl (70-99); POTASSIUM 2.8 mmol/L (3.5-5.1); SODIUM 146 mmol/L (136-145)
== END | disposition home or self-care (01) ==
LOC: C.RAD1850 15:14
PROVIDERS: ATTEND Surgery
DX: R91.8 Other nonspecific abnormal finding of lung field (principal); J90 Pleural effusion, not elsewhere classified; I48.91 Unspecified atrial fibrillation; I42.9 Cardiomyopathy, unspecified

== ENCOUNTER → 2016-08-22 | Day surgery (SDC) | payer OTHER, BC ==
[~2016-08-22] VITALS: Ht 157.5 cm; Wt 65.0 kg
[2016-08-22 08:07] VITALS: BP 153/97; PULSE 70; TEMP 36.6; O2SAT 94; Ht 157.5 cm; Wt 65.0 kg
--- NOTE | 2016-08-22 08:38 | Discharge Instructions ---
Discharge Instructions Date of Service Aug 22, 2016. Visit Reason for Visit: Right Pleural Effusion Discharge Discharge Diagnosis / Problem: Right Pleural Effusion Discharge Goals Goal(s): Decrease discomfort, Learn about illness Activity Recommendations Activity Limitations: resume your previous activity (in 24 hours) 1. Keep your scheduled appointment with Dr. Jean Baptiste on August 28, 2016 @ 3:00 Anesthesia . Post Anesthesia Instructions: If you have had General Anesthesia or IV Sedation: * Do not drive today. * Resume driving when surgeon permits. * Do not make important decisions or sign legal documents today. * Call surgeon for: 1. Temperature elevations greater than 101 degrees F. 2. Uncontrollable pain. 3. Excessive bleeding. 4. Persistent nausea and vomiting. 5. Medication intolerance (nausea, vomiting or rash). * For nausea and vomiting use only clear liquids such as: tea, soda, bouillon until nausea subsides, then gradually increase diet as tolerated. * If you have any concerns or questions, call your surgeon's office. If physician is unavailable and it is an emergency, call 911 or go to the nearest emergency room. . Diet Recommendations Recommended Home Diet: resume previous diet Pending Studies Studies pending at discharge: no Medical Emergencies . Who to Call and When: Medical Emergencies: If at any time you feel your situation is an emergency, please call 911 immediately. . Non-Emergent Contact Non-Emergency issues call your: Surgeon Call Non-Emergent contact if: you have a fever, your pain is worsening . . "Provider Documentation" section prepared by Finesse Hooker.
[2016-08-22 09:40] VITALS: BP 152/82; PULSE 71; O2SAT 94
[2016-08-22 09:55] VITALS: BP 148/67; PULSE 70; O2SAT 92
--- NOTE | 2016-08-22 10:09 | DIAGNOSTIC IMAGING REPORT ---
CHEST ONE VIEW PORTABLE CLINICAL HISTORY: thoracentesis postthoracentesis COMPARISON STUDY: 08/21/2016 FINDINGS: Considerable decrease in volume of right effusion. No evidence pneumothorax. IMPRESSION: No pneumothorax status post right thoracentesis. Electronically signed by: Maksim Causey M.D. 08/22/2016 10:07 AM Dictated Date/Time: 08/22/2016 10:06 AM
[2016-08-22 10:15] VITALS: BP 142/88; PULSE 90; O2SAT 90
[2016-08-22 10:30] VITALS: BP 154/83; PULSE 70; O2SAT 92
[2016-08-22 11:37] LABS: PLEURAL FLUID APPEARANCE CLEAR; PLEURAL FLUID COLOR PALE YELLOW; PLEURAL FLUID MONONUC RELAT 79.9 %; PLEURAL FLUID POLYNUC 20.1 %; PLEURAL FLUID SOURCE RIGHT LUNG; PLEURAL FLUID WBC (A) 218 /uL
[2016-08-22 11:55] LABS: PLEURAL FLUID TOTAL PROTEIN 2.3 g/dl
--- NOTE | 2016-08-22 12:07 | OPERATIVE REPORT ---
DATE OF OPERATION: 08/22/2016 PROCEDURE: 1. Right thoracentesis. 2. Ultrasound guidance. SURGEON: Dr. Jean Baptiste and Santiago Hooker PA-C. ANESTHESIA: Local. PROCEDURE: With the patient in the upright position her right chest was prepped and draped in usual sterile fashion. An ultrasound was used to find an area which was a bit more lateral and a bit further down than I would have thought. It showed a good window of fluid. The patient was prepped and draped in the sterile fashion. After appropriate timeout had been called 25 gauge needle with 1% xylocaine was used to raise a skin wheal. A large bore needle was used to anesthetize the deeper tissues and then go into the pleural cavity. There was free flowing light colored fluid and a guidewire was inserted through the needle and needle removed. Introducer sheath was slid over the guidewire and then the sheath was removed. A triple lumen catheter was then slid in up to 18 cm and the guidewire removed. This was then used to remove 1100 mL of a serous yellow fluid. This had a pH sent as well as appropriate studies. She had some reexpansion pain and coughing. The catheter was removed. Chest x-ray looked quite good afterwards. We will see her back in the office in the next week or so. I attest to the content of the Intraoperative Record and any orders documented therein. Any exceptio ns are noted below.
== END | disposition home or self-care (01) ==
LOC: C.ACU 07:39
PROVIDERS: ATTEND Surgery
DX: J91.8 Pleural effusion in other conditions classified elsewhere (principal)

== ENCOUNTER → 2016-08-28 | Outpatient (CLI) | payer OTHER ==
[~2016-08-28] MED LIST changes: -DONE10TA12 PO
--- NOTE | 2016-08-28 16:08 | DIAGNOSTIC IMAGING REPORT ---
CHEST 2 VIEWS ROUTINE HISTORY: Multiple lung nodules. COMPARISON: Chest 08/22/2016. FINDINGS: No pneumothorax. The heart is mildly enlarged. Surgical clips within the left breast. Small right pleural effusion has slightly increased in size. Right basilar hazy airspace opacity remains unchanged. This could represent fluid within the major fissure. Mild interstitial thickening, unchanged. IMPRESSION: Slight increase in size in the small right pleural effusion. Electronically signed by: Vitor Portillo M.D. 08/28/2016 4:06 PM Dictated Date/Time: 08/28/2016 4:04 PM
== END | disposition home or self-care (01) ==
LOC: C.RAD1850 15:53
PROVIDERS: ATTEND Surgery
DX: J90 Pleural effusion, not elsewhere classified (principal); R91.8 Other nonspecific abnormal finding of lung field

== ENCOUNTER 2016-09-01 14:21 | Day surgery (SDC) | payer OTHER, BC ==
[~2016-09-01] VITALS: Ht 157.5 cm; Wt 65.0 kg
[~2016-09-01 14:21] MED LIST changes: -TRAM-10 PO
[2016-09-01 14:51] VITALS: BP 135/77; PULSE 61; TEMP 36.4; O2SAT 97; Ht 157.5 cm; Wt 65.0 kg
[2016-09-01] MEDS ORDERED: LIDOCAINE HCL 1% 20 ML VIAL INFIL ONE (15:00)
[2016-09-01] MEDS ORDERED: LIDOCAINE HCL 1% 20 ML VIAL ONE (15:00)
--- NOTE | 2016-09-01 15:05 | Discharge Instructions ---
Discharge Instructions Date of Service Sep 01, 2016. Visit Reason for Visit: Right Pleural Effusion Discharge Discharge Diagnosis / Problem: Right Pleural Effusion Discharge Goals Goal(s): Decrease discomfort, Improve function Activity Recommendations Activity Limitations: resume your previous activity (in 24 hours) Anesthesia . Post Anesthesia Instructions: If you have had General Anesthesia or IV Sedation: * Do not drive today. * Resume driving when surgeon permits. * Do not make important decisions or sign legal documents today. * Call surgeon for: 1. Temperature elevations greater than 101 degrees F. 2. Uncontrollable pain. 3. Excessive bleeding. 4. Persistent nausea and vomiting. 5. Medication intolerance (nausea, vomiting or rash). * For nausea and vomiting use only clear liquids such as: tea, soda, bouillon until nausea subsides, then gradually increase diet as tolerated. * If you have any concerns or questions, call your surgeon's office. If physician is unavailable and it is an emergency, call 911 or go to the nearest emergency room. . Instructions / Follow-Up Instructions / Follow-Up 1. Keep you r scheduled appointment with Dr. Jean Baptiste on September 16, 2016 @ 1:00 pm. 2. Visiting nurses will drain catheter daily . Keep a record of amount drained and call Dr. Jean Baptiste's office every with amounts. 3. Do not shower until cleared to do so by Dr. Jean Baptiste. Diet Recommendations Recommended Home Diet: resume previous diet Pending Studies Studies pending at discharge: no Medical Emergencies . Who to Call and When: Medical Emergencies: If at any time you feel your situation is an emergency, please call 911 immediately. . Non-Emergent Contact Non-Emergency issues call your: Surgeon Call Non-Emergent contact if: temperature is above 101.5, your pain is not controlled, wound has increased drainage . . "Provider Documentation" section prepared by Finesse Hooker. .
[2016-09-01] MEDS ORDERED: TRAM-10 PO (15:06)
--- NOTE | 2016-09-01 15:44 | DIAGNOSTIC IMAGING REPORT ---
CHEST ONE VIEW PORTABLE HISTORY: Right pleural effusion COMPARISON: Chest 08/28/2016. FINDINGS: Small right pleural effusion and patchy right basilar densities persist. Mild elevation of the right hemidiaphragm, unchanged. The heart is top normal in size. The left lung is clear. Surgical clips within the left axilla. IMPRESSION: No change in the small right pleural effusion and patchy right basilar densities. Electronically signed by: Vitor Portillo M.D. 09/01/2016 3:42 PM Dictated Date/Time: 09/01/2016 3:40 PM
[2016-09-01 16:15] VITALS: BP 133/74; PULSE 60; TEMP 36.6; O2SAT 94
--- NOTE | 2016-09-01 16:21 | DIAGNOSTIC IMAGING REPORT ---
SINGLE VIEW CHEST CLINICAL HISTORY: Pleurx catheter placement. FINDINGS: An AP, portable, upright chest radiograph is compared to study performed earlier the same day 09/01/2016. Correlation is made with chest CT dated 07/16/2016. The examination is degraded by portable technique and patient rotation. The heart is enlarged and there is atherosclerotic calcification of the thoracic aorta. The pulmonary vasculature is noncongested. Chronic interstitial thickening is unchanged. A Pleurx catheter has been placed at the right lung base. A right pleural effusion appears decreased in size. A trace right pneumothorax is identified. Right basilar airspace opacities are observed and likely represent atelectasis. The skeletal structures are osteopenic. Chronic posttraumatic deformity and postoperative change is partially visualized in the left humerus. Surgical clips are noted in the left axilla. IMPRESSION: 1. A Pleurx catheter has been placed at the right lung base. A right pleural effusion has decreased in size. 2. A trace right pneumothorax is observed. 3. Right basilar opacities likely represent atelectasis. 4. Cardiomegaly without radiographic evidence of congestive failure. Electronically signed by: Ryne Day M.D. 09/01/2016 4:19 PM Dictated Date/Time: 09/01/2016 4:16 PM
[2016-09-01 16:39] VITALS: BP 133/74; PULSE 60; TEMP 36.6; O2SAT 94
[2016-09-01 16:46] VITALS: BP 141/79; PULSE 63; TEMP 36.6; O2SAT 94
[2016-09-01 17:30] LABS: PLEURAL FLUID APPEARANCE BLOODY; PLEURAL FLUID COLOR RED; PLEURAL FLUID MONONUC RELAT 83.7 %; PLEURAL FLUID POLYNUC 16.3 %; PLEURAL FLUID SOURCE RIGHT LUNG; PLEURAL FLUID WBC (A) 369 /uL
--- NOTE | 2016-09-01 17:56 | OPERATIVE REPORT ---
DATE OF OPERATION: 09/01/2016 PREOPERATIVE DIAGNOSIS: Recurrent right pleural effusion. POSTOPERATIVE DIAGNOSIS: Same. PROCEDURE: Insertion of right Pleurx catheter. SURGEON: Dr. Jean Baptiste. RISK MANAGEMENT INTERN: NANCY Hein. ANESTHESIA: Local. SPECIFICS OF PROCEDURE: The bedside ultrasound was used to find a window. This was actually fairly low on her right lateral chest. There was good window between the chest wall and the diaphragm and liver. The patient was prepped and draped in the usual sterile fashion after appropriate timeout had been called. A 25-gauge needle, 1% Xylocaine was used to anesthetize the skin over this area. About 10 cm anterior to this, another skin wheal was raised. 1 cm incisions were made at both. A large bore needle was used to anesthetize the deeper tissues of the more posterior incision. Free flowing fluid was obtained along with some dark red blood. The fluid appeared to be serous and was nonclotting. A guidewire was inserted through the needle and needle removed. A tunneler was attached to the Pleurx catheter and dragged from the anterior to the posterior incision after the subcutaneous tissues had been anesthetized with a long needle and 1% Xylocaine. Tunneler was then removed. A peel away sheath and inner cannula were slid over the guidewire posteriorly and the inner cannula and guidewire removed and the Pleurx catheter inserted. The peel away catheter was removed. Two single 3-0 silk sutures were used to close the posterior incision and a single 3-0 silk suture was used to anchor the catheter to the patient's skin. Approximately 950 mL of serobloody fluid was drained. She had some mild reexpansion pain and cough. Chest x-ray is pending at the time of this dictation. Antimicrobial dressings were placed. Home care was set up to drain her on a daily basis. I attest to the content of the Intraoperative Record and any orders documented therein. Any exceptio ns are noted below.
== END 2016-09-01 16:55 | disposition home or self-care (01) ==
LOC: C.ACU 14:21
PROVIDERS: ATTEND Surgery
DX: J90 Pleural effusion, not elsewhere classified (principal)

== ENCOUNTER → 2016-09-23 | Outpatient (CLI) | payer OTHER, BC ==
[~2016-09-23] MED LIST changes: +TRAM-10 PO
--- NOTE | 2016-09-23 14:05 | DIAGNOSTIC IMAGING REPORT ---
CHEST 2 VIEWS ROUTINE CLINICAL HISTORY: J90 Pleural effusion on right pleural effusion COMPARISON STUDY: 09/01/2016 FINDINGS: Small right pleural effusion slightly increased in the prior exam. No significant pneumothorax the current study. Left lung is considered clear. Chronic elevation right hemidiaphragm. IMPRESSION: Small right pleural effusion. Lungs otherwise appear clear. Electronically signed by: Maksim Causey M.D. 09/23/2016 2:03 PM Dictated Date/Time: 09/23/2016 2:02 PM
== END | disposition home or self-care (01) ==
LOC: C.RAD1850 13:44
PROVIDERS: ATTEND Surgery
DX: J90 Pleural effusion, not elsewhere classified (principal)

== ENCOUNTER → 2016-10-24 | Outpatient (CLI) | payer OTHER ==
--- NOTE | 2016-10-24 12:56 | DIAGNOSTIC IMAGING REPORT ---
CT OF THE CHEST WITHOUT IV CONTRAST CLINICAL HISTORY: Right pleural effusion. Shortness of breath. COMPARISON STUDY: Chest CT July 22, 2016 and chest radiograph September 23, 2016. CT DOSE: 234.77 mGy.cm TECHNIQUE: Axial images of the chest were obtained without IV contrast. Images were reviewed in the axial, sagittal, and coronal planes. IV contrast was not administered for this examination. FINDINGS: No enlarged axillary, mediastinal or hilar lymph nodes are present. The heart is mildly enlarged. The central airways are patent. A small right pleural effusion has decreased in size when compared to chest CT of July 22, 2016. There are are numerous solid, groundglass and mixed solid and groundglass irregular nodules within the lungs. A few of these have slightly increased in size since CT of July 22, 2016 although the majority are unchanged. A 2.2 cm groundglass left apical nodule shown on image 27 of 301 has a 1.4 cm solid component. This is similar to prior exam. A 1.3 cm subpleural irregular right upper lobe solid nodule shown image 70 previously measured 1.2 cm. A 6 mm subpleural lingular nodule shown on image 152 previously measured 5 mm. Many of these lesions have cystic foci. There is no consolidation to suggest pneumonia. Central airways are patent. No suspicious osseous lesions are present. Visualized portions of the upper abdomen are unremarkable. There are postsurgical findings within the left breast and axilla. IMPRESSION: 1. Numerous solid, groundglass and mixed solid and groundglass nodules within the lungs. A few of these have slightly increased in size since exam July 22, 2016; however, the majority are unchanged. The findings are consistent with a neoplastic process and suggest multifocal adenocarcinoma. 2. No thoracic lymphadenopathy. 3. Small right pleural effusion, decreased in size since prior exam. Electronically signed by: Azeem Wharton M.D. 10/24/2016 12:55 PM Dictated Date/Time: 10/24/2016 12:40 PM
== END | disposition home or self-care (01) ==
LOC: C.CTS 11:55
PROVIDERS: ATTEND Surgery
DX: J90 Pleural effusion, not elsewhere classified (principal)

== ENCOUNTER → 2017-02-06 | Outpatient (CLI) | payer OTHER, BC ==
--- NOTE | 2017-02-06 13:09 | DIAGNOSTIC IMAGING REPORT ---
(CHEST) THORAX WITHOUT CLINICAL HISTORY: 71 years-old Female presenting with multiple lung nodules, right pleural effusion. TECHNIQUE: Multidetector CT imaging of the chest was performed without the use of intravenous contrast. IV contrast: None. A dose lowering technique was used consistent with the principles of ALARA (as low as reasonably achievable). COMPARISON: 10/24/2016. CT DOSE (mGy.cm): The estimated cumulative dose is 213.74 mGycm. FINDINGS: Ob/Gyn Nurse topogram: Unremarkable. On soft tissue windows, postsurgical changes of the left axilla and superior left breast. Soft tissue nodularity in the left axilla may represent scar tissue (series 4 image 81, unchanged since July. No axillary, supraclavicular, or mediastinal lymphadenopathy. Atherosclerosis of the aorta. Aortic valve and coronary artery calcification. Normal heart size. Interval resolution of right pleural effusion. Nodular contour of the liver could suggest cirrhosis. On lung windows, multifocal pulmonary nodules (over 20 in each lung), many are subsolid with minor solid components. Several are totally solid with spiculated margins. Few index lesions measured below: -Right upper lobe solid spiculated nodule measuring 11 mm (series 4 image 60), previously 10 mm -Right upper lobe solid fissural nodule measuring 13 mm (series 4 image 69), previously 13 mm -Right lower lobe partly solid, partly subsolid nodule measuring 14 mm (series 4 image 122), previously 14 mm, with unchanged size of the solid component -Left upper lobe partly solid, partly subsolid nodule measuring 21 mm (series 4 image 21), previously 22 mm No convincing evidence of a new nodule allowing for the multiplicity. On bone windows, normal osseous structures. IMPRESSION: 1. Overall stable appearance of the numerous bilateral pulmonary nodules which are predominantly subsolid with several solid or partially solid components. These remain concerning for adenomatous lesions (hyperplasia to carcinoma in situ). Continued follow-up is warranted. Marla Society 2017 recommendations below. 2. Resolution of right pleural effusion. Please refer to below summary of Fleischner Society 2017 recommendations for follow-up of incidental CT nodules (Ginger Reynoso et al. Guidelines for management of incidental pulmonary nodules detected on CT images: From the Fleischner Society 2017. Radiology 2017; 284: 228-243.) SOLID NODULES Single nodule; size < 6 mm * Low risk patients: No routine follow-up * High risk patients: Optional CT at 12 months Single nodule; size 6-8 mm * Low risk patients: CT at 6-12 months, then consider CT at 18-24 months * High risk patients: CT at 6-12 months, then at 18-24 months Single nodule; size > 8 mm * Either low or high risk patients: Considered CT at 3 months, PET/CT, or tissue sampling Multiple nodules; size < 6 mm * Low risk patients: No routine follow up * High risk patients: Optional CT at 12 months Multiple nodules; size 6-8 mm * Low risk patients: CT at 3-6 months, then consider CT at 18-24 months * High risk patients: CT at 3-6 months, then at 18-24 months Multiple nodules; size > 8 mm * Low risk patients: CT at 3-6 months, then consider at 18-24 months * High risk patients: CT at 3-6 months, then at 18-24 months Note: These guidelines apply to incidental nodules. These guidelines do not apply to patients younger than 35 years, immunocompromised patients, or patients with cancer. * Low risk patients: Minimal or absent history of smoking and/or other known risk factors * High risk patients: History of smoking, exposure to other carcinogens, emphysema, fibrosis, upper lobe location, family history of lung cancer, etc. * If a nodule up to 8 mm is partly solid or is ground glass, further follow-up is required after 24 months to exclude possible slow growing adenocarcinoma. SUBSOLID NODULES Single ground-glass nodule * Nodule size < 6 mm: No routine follow-up * Nodule size > or = 6 mm: CT at 6-12 months to confirm persistence, then CT every 2 years until 5 years Single part-solid nodule * Nodule size < 6 mm: No routine follow-up * Nodules size > or = 6 mm: CT at 3-6 months to confirm persistence. If unchanged and solid component remains < 6 mm, annual CT should be performed for 5 years Multiple nodules * Nodule size < 6 mm: CT at 3-6 months. If stable, consider CT at 2 and 4 years. * Nodules size > or = 6 mm: CT at 3-6 months. Subsequent management based on the most suspicious nodule(s) Electronically signed by: Reinaldo Heart M.D. 02/06/2017 1:08 PM Dictated Date/Time: 02/06/2017 12:57 PM
== END | disposition home or self-care (01) ==
LOC: C.CTS 12:37
PROVIDERS: ATTEND Surgery
DX: J90 Pleural effusion, not elsewhere classified (principal); R91.8 Other nonspecific abnormal finding of lung field

== ENCOUNTER → 2017-08-07 | Outpatient (CLI) | payer OTHER, BC ==
[~2017-08-07] MED LIST changes: -FOLI1TAB7 PO; +FOLI1TAB8 PO; -TRAM-10 PO
--- NOTE | 2017-08-07 11:11 | DIAGNOSTIC IMAGING REPORT ---
CT OF THE CHEST WITHOUT IV CONTRAST CLINICAL HISTORY: Right pleural effusion. COMPARISON STUDY: Chest CT February 06, 2017. CT DOSE: 220.77 mGy.cm TECHNIQUE: Axial images of the chest were obtained without IV contrast. Images were reviewed in the axial, sagittal, and coronal planes. IV contrast was not administered for this examination. A dose lowering technique was utilized adhering to the principles of ALARA. FINDINGS: No enlarged axillary, mediastinal or hilar lymph nodes are present. The size the heart is normal. There is no pericardial effusion. There are postoperative findings within the left breast and left axilla. There is no pneumothorax or pleural effusion. Note is made of numerous solid, subsolid and groundglass nodules within the lungs. These are similar to exam of February 06, 2017. A few have slightly increased in size since initial chest CT of July 16, 2016. These include a 1.4 cm solid irregular right upper lobe nodule shown on image 65 of 296. A 1.3 cm subpleural nodule within the posterior segment of the right upper lobe is similar to prior exam. A mixed solid and groundglass left upper lobe lesion measuring 2.2 cm shown image 26 is unchanged. No new lesions are present. There is no consolidation to suggest pneumonia. There are mild secretions within the tracheobronchial tree. There are no suspicious osseous lesions. The liver appears cirrhotic. IMPRESSION: 1. No significant change in numerous solid, subsolid and groundglass nodules since chest CT of February 06, 2017. A few lesions have slightly increased in size since initial chest CT of July 16, 2016. The findings suggest multifocal neoplasms within the adenocarcinoma spectrum. 2. No thoracic lymphadenopathy. 3. No pleural effusion. 4. Cirrhosis. Electronically signed by: Azeem Wharton M.D. 08/07/2017 11:09 AM Dictated Date/Time: 08/07/2017 10:58 AM
== END | disposition home or self-care (01) ==
LOC: C.CTS 10:35
PROVIDERS: ATTEND Surgery
DX: J90 Pleural effusion, not elsewhere classified (principal); R91.8 Other nonspecific abnormal finding of lung field; K74.60 Unspecified cirrhosis of liver

== ENCOUNTER 2017-12-06 14:27 | Emergency (ER) | payer OTHER, BC ==
[~2017-12-06] VITALS: Ht 162.6 cm; Wt 64.0 kg
[2017-12-06 14:32] VITALS: TEMP 36.7; Ht 162.6 cm; Wt 64.0 kg
--- NOTE | 2017-12-06 15:32 | EMERGENCY ROOM VISIT NOTE ---
History First contact with patient: 14:56 (Sigrid Phillips PA-C) First contact with patient: 14:56 (Pankaj Walker M.D.) Chief Complaint: NASAL PAIN/INJURY Stated Complaint: POTENTIAL BROKEN NOSE? SHE FELL History of Present Illness The patient is a 72 year old female who presents to the Emergency Room with complaints of a fall and injury to her nose yesterday. The patient states that yesterday was her birthday and she had too much to drink. She states that she tripped and fell, striking her nose on a hardwood floor. The injury occurred approximately 9:00 PM yesterday. She reports pain in the nose rated a 2/10. Pain is worse with palpating the nose. She denies any other complaints. She denies headache, nausea, vomiting, blurred vision, slurred speech or confusion. She states there was no loss of consciousness at the time of the injury. She does take a baby aspirin daily. (Sigrid Phillips PA-C) Review of Systems A complete 10 point review of systems was reviewed with the patient with pertinent positives and negatives as per history of present illness. All else were negative. (Sigrid Phillips PA-C) Past Medical/Surgical History Medical Problems: (1) Acute renal failure (2) Alcohol abuse (3) Atrial fibrillation Social History Problems: (1) Alcohol abuse (Pankaj Walker M.D.) Family History No pertinent family history (Sigrid Phillips PA-C) No pertinent family history (Pankaj Walker M.D.) Social History Smoking Status: Current Every Day Smoker Alcohol Use: heavy Marital Status: Housing Status: lives with family Occupation Status: retired (Sigrid Phillips PA-C) Current/Historical Medications Scheduled Aspirin (Aspirin Ec), 325 MG PO DAILY Cyanocobalamin (Vitamin B-12), 1,000 MCG PO 3XWK Folic Acid (Folvite), 1 MG PO DAILY Furosemide (Lasix), 1 TAB PO DAILY Lisinopril (Zestril), 5 MG PO DAILY Magnesium Oxide (Mag-Ox), 400 MG PO DAILY Metoprolol Succinate (Metoprolol Succinate ER), 100 MG PO DAILY Omeprazole (Prilosec), 20 MG PO DAILY Sertraline (Zoloft), 50 MG PO DAILY Simvastatin (Zocor), 40 MG PO QPM Scheduled PRN Albuterol (Ventolin Hfa), 2 PUFFS INH Q6 PRN for Wheezing Physical Exam Vital Signs Date Time Temp Pulse Resp B/P (MAP) Pulse Ox O2 Delivery O2 Flow Rate FiO2 12/06/17 16:22 71 18 135/83 99 12/06/17 14:32 36.7 64 18 129/77 97 Room Air (Pankaj Walker M.D.) Physical Exam VITALS: Vitals are noted on the nurse's note and reviewed by myself. Vital signs stable. GENERAL: This is a 72-year-old female, in no acute distress, nondiaphoretic, well-developed well-nourished. SKIN: No lacerations or abrasions noted. HEAD: Normocephalic atraumatic. EARS: External auditory canals clear, tympanic membranes pearly ames without erythema or effusion bilaterally. No hemotympanum. EYES: Ecchymosis noted in both infraorbital areas. No tenderness. Pupils equal round and reactive to light and accommodation. Extraocular movements intact. NOSE: Mild swelling of the nose and tenderness to palpation of the nose throughout. There is dried crusted blood in the left nare. No active bleeding. No septal hematoma. Otherwise no tenderness of the facial bones. NECK: Supple without nuchal rigidity. Cervical spine is nontender. HEART: Regular rate and rhythm without murmurs gallops or rubs. LUNGS: Clear to auscultation bilaterally without wheezes, rales or rhonchi. NEURO: Patient was alert and oriented to person place and time. (Sigrid Phillips ., PA-C) Medical Decision & Procedures ER Provider Diagnostic Interpretation: HEAD WITHOUT CONTRAST (CT) Findings: The paranasal sinuses and mastoid air cells are clear. The calvarium and skull base are intact. The ventricles and sulci are within normal limits. There is no mass, hematoma, midline shift, or acute infarct. Impression: No acute intracranial abnormality. Age-related atrophy and chronic small vessel change. FACIAL BONES-MXILLOFAC WITHOUT FINDINGS: The visualized cervical spine, skull base, pterygoid plates, nasal bones, lamina papyracea, orbital floors, mandible, and zygomatic arches are intact. No fractures. The orbits are unremarkable. Radiopaque density posterior to the right mandible potentially related to oral content. IMPRESSION: No fractures within the maxillofacial region. (Sigrid Phillips PA-C) Medical Decision Differential diagnosis includes nasal bone fracture, orbital floor fracture, skull fracture, epidural hematoma, subdural hematoma, intracranial bleed, among others. The patient was evaluated as above. CT scans of the head and facial bones were performed and fortunately were negative. The patient was reassured regarding these findings. Conservative measures were discussed with the patient. She will follow-up with her primary care provider as needed. She verbalized understanding of my assessment and treatment plan and was discharged home in good condition. The patient was independently evaluated by Dr. Walker, ED attending physician , who agreed with my assessment and treatment plan. (Sigrid Phillips PA-C) The patient was seen by myself and examined with advanced care provider. I agree with the history, physical and findings. Fell during birthday celebration yesterday; imaging negative. PCP follow up. Please see their note for disposition and details. (Pankaj Walker M.D.) Head Trauma GCS Score: 15 (Sigrid Phillips PA-C) Medication Reconcilliation Current Medication List: was personally reviewed by me (Sigrid Phillips PA-C) Blood Pressure Screening Patient's blood pressure: Normal blood pressure (Sigrid Phillips PA-C) Impression Primary Impression: Closed head injury Departure Information Dispostion Home / Self-Care Condition GOOD Referrals Hedy Wharton M.D. (PCP) Patient Instructions My [facility] Additional Instructions CT scan of your head and face did not show any fractures. For pain control, you can use the following [id number] medicines (if >12 yo): - Regular strength (325mg/tab) Tylenol (acetaminophen) 2 tabs every 4-6 hours as needed. Do not exceed 12 tablets in a 24 hour period. Avoid taking more than 4 grams (4000 mg) of Tylenol per day. This includes any other sources of acetaminophen you may take on a regular basis. - Regular strength (200 mg/tab) Advil (ibuprofen) 1-2 tabs every 4-6 hours as needed. Do not exceed a dose of 3200 mg per day. As with any visit to the emergency department, you should follow up with your primary care provider. Return to the emergency department with any worsening or new/concerning symptoms. Problem Qualifiers Primary Impression: Closed head injury Encounter type: initial encounter Qualified Codes: S09.90XA - Unspecified injury of head, initial encounter
--- NOTE | 2017-12-06 15:44 | DIAGNOSTIC IMAGING REPORT ---
HEAD WITHOUT CONTRAST (CT) CT DOSE: 741.49 mGy.cm HISTORY: Trauma head injury, nasal pain/swelling TECHNIQUE: Multiaxial CT images of the head were performed without the use of intravenous contrast. A dose lowering technique was utilized adhering to the principles of ALARA. Comparison: None. Findings: The paranasal sinuses and mastoid air cells are clear. The calvarium and skull base are intact. The ventricles and sulci are within normal limits. There is no mass, hematoma, midline shift, or acute infarct. Impression: No acute intracranial abnormality. Age-related atrophy and chronic small vessel change. The above report was generated using voice recognition software. It may contain grammatical, syntax or spelling errors. Electronically signed by: Maksim Causey M.D. 12/06/2017 3:42 PM Dictated Date/Time: 12/06/2017 3:41 PM
--- NOTE | 2017-12-06 16:06 | DIAGNOSTIC IMAGING REPORT ---
FACIAL BONES-MXILLOFAC WITHOUT CT DOSE: HISTORY: Trauma. Pain. head injury, nasal pain/swelling TECHNIQUE: Multiaxial CT images of the maxillofacial region were performed and reformatted in the coronal plane without the use of contrast. A dose lowering technique was utilized adhering to the principles of ALARA. COMPARISON: None. FINDINGS: The visualized cervical spine, skull base, pterygoid plates, nasal bones, lamina papyracea, orbital floors, mandible, and zygomatic arches are intact. No fractures. The orbits are unremarkable. Radiopaque density posterior to the right mandible potentially related to oral content. IMPRESSION: No fractures within the maxillofacial region. The above report was generated using voice recognition software. It may contain grammatical, syntax or spelling errors. Electronically signed by: Maksim Causey M.D. 12/06/2017 4:04 PM Dictated Date/Time: 12/06/2017 4:01 PM
[2017-12-06 16:22] VITALS: BP 135/83; PULSE 71; O2SAT 99
== END 2017-12-06 16:23 | disposition home or self-care (01) ==
LOC: C.EDB 14:28 → C.EDD 16:23
DX: S09.90XA Unspecified injury of head, initial encounter (principal); W01.198A Fall on same level from slipping, tripping and stumbling with subsequent striking against other object, initial encounter; I48.91 Unspecified atrial fibrillation; F17.210 Nicotine dependence, cigarettes, uncomplicated; Z79.82 Long term (current) use of aspirin; Z79.899 Other long term (current) drug therapy

== ENCOUNTER → 2017-12-18 | Outpatient (CLI) | payer OTHER, BC ==
[2017-12-18 12:26] LABS: BASO % 0.4 %; BASO ABS # 0.02 K/uL (0-0.2); EOS % 2.3 %; EOS ABS # 0.11 K/uL (0-0.5); HEMATOCRIT 34.7 % (37-47); HEMOGLOBIN 11.2 g/dL (12.0-16.0); IG# 0.01 K/uL (0.00-0.02); LYMPH % 18.9 %; LYMPH ABS # 0.89 K/uL (1.2-3.4); MEAN CELL VOLUME 95.9 fL (80-100); MEAN CORPUSCULAR HEMOGLOBIN 30.9 pg (25-34); MEAN CORPUSCULAR HGB CONC 32.3 g/dl (32-36); MEAN PLATELET VOLUME 10.2 fL (7.4-10.4); MONO % 6.2 %; MONO ABS # 0.29 K/uL (0.11-0.59); NEUT ABS # 3.38 K/uL (1.4-6.5); PLATELET COUNT 209 K/uL (130-400); RED CELL DISTRIBUTION WIDTH CV 15.9 % (11.5-14.5); RED CELL DISTRIBUTION WIDTH SD 55.9 fL (36.4-46.3)
[2017-12-18 13:12] LABS: ALBUMIN 3.5 gm/dl (3.4-5.0); ALKALINE PHOSPHATASE 93 U/L (45-117); ALT/SGPT 22 U/L (12-78); AST/SGOT 32 U/L (15-37); BLOOD UREA NITROGEN 17 mg/dl (7-18); CALCIUM 8.3 mg/dl (8.5-10.1); CARBON DIOXIDE 26 mmol/L (21-32); CHOLESTEROL 205 mg/dl (0-200); CREATININE 1.39 mg/dl (0.60-1.20); GLUCOSE 71 mg/dl (70-99); LDL CHOLESTEROL CALCULATED 85 mg/dl; POTASSIUM 5.6 mmol/L (3.5-5.1); SODIUM 137 mmol/L (136-145); TOTAL PROTEIN 7.5 gm/dl (6.4-8.2)
== END | disposition home or self-care (01) ==
LOC: C.LABBFT 09:07
PROVIDERS: ATTEND Internal Medicine
DX: Z00.00 Encounter for general adult medical examination without abnormal findings (principal); F10.10 Alcohol abuse, uncomplicated; I48.91 Unspecified atrial fibrillation; E78.5 Hyperlipidemia, unspecified; E53.8 Deficiency of other specified B group vitamins; I42.9 Cardiomyopathy, unspecified; E87.6 Hypokalemia